=== PATIENT | female | born 1950 | race African-American/Black ===

== ENCOUNTER 2017-02-16 08:43 | Inpatient (IN) | payer OTHER, MEDICARE ==
[2017-02-16] MEDS ORDERED: ONDANSETRON 4 MG/2 ML VIAL IVPUSH ONE (09:33)
[2017-02-16] MEDS ORDERED: SODIUM CHLORIDE 1,000 ML IV STA (09:33)
[2017-02-16] MEDS ORDERED: morphine CARPU-JECT 4 MG/1 ML DISP.SYRIN IVPUSH ONE ×2 (09:33→13:08)
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
[2017-02-16] MEDS ORDERED: morphine CARPU-JECT 4 MG/1 ML DISP.SYRIN ONE ×2 (09:35→13:13)
[2017-02-16] MEDS ORDERED: ONDANSETRON 4 MG/2 ML VIAL ONE (09:35)
[2017-02-16 09:53] LABS: MCH 28.5 pg (25.7-33.7); MCHC 31.9 g/dl (32.0-36.0); MEAN CELL VOLUME 89.3 fl (80-96); MEAN PLT VOLUME 8.9 fl (7.5-11.1); PLATELET COUNT 140 K/MM3 (134-434); RDW 14.2 % (11.6-15.6); WHITE BLOOD COUNT 3.9 K/mm3 (4.0-10.0)
[2017-02-16 10:09] LABS: INR 1.17 (0.82-1.09); PROTHROMBIN TIME (PATIENT) 12.9 SEC (9.98-11.88)
[2017-02-16 10:19] LABS: ALBUMIN 3.1 g/dl (3.4-5.0); ALK PHOS 49 U/L (45-117); ANION GAP 10 (8-16); BILIRUBIN,TOTAL 0.7 mg/dL (0.2-1.0); CALCIUM 8.2 mg/dL (8.5-10.1); CO2 23 mmol/L (21-32); CREATININE 0.9 mg/dL (0.55-1.02); GLUCOSE,RANDOM 97 mg/dL (74-106); SGOT/AST 18 U/L (15-37); SGPT/ALT 16 U/L (12-78); TOT PROT 6.4 g/dl (6.4-8.2)
[2017-02-16 10:29] LABS: PLATELET COMMENT2 NO CLOTTING DETECTED; PLATELET ESTIMATE ADEQUATE (NORMAL)
[2017-02-16 11:21] LABS: URINE APPEARANCE CLEAR; URINE BILIRUBIN NEGATIVE (NEGATIVE); URINE BLOOD NEGATIVE (NEGATIVE); URINE COLOR LTYELLOW; URINE GLUCOSE (UA) NEGATIVE (NEGATIVE); URINE KETONE 1+ (NEGATIVE); URINE LEUK ESTERASE NEGATIVE (NEGATIVE); URINE NITRITE NEGATIVE (NEGATIVE); URINE PROTEIN NEGATIVE (NEGATIVE); URINE UROBILINOGEN NEGATIVE E.U./dl (0.2-1.0)
[2017-02-16] MEDS ORDERED: KETOROLAC TROMETHAMINE 30 MG/1 ML VIAL IVPUSH ONE (14:46)
--- NOTE | 2017-02-16 15:05 | HP ---
CHIEF COMPLAINT: pain everywhere PCP: Jaelyn HISTORY OF PRESENT ILLNESS: 66 yo F with h/o hypothyroidism, GERD, JULIANN/BSO, recent UTI who presents with pain everywhere. Patient states that 3 days ago she developed fatigue and generalized weakness while out shopping. She went home where she had an episode of emesis and symptoms later progressed to pain everywere in her body with the feeling like a tourniquet is on all her arms and legs. She attempted to walk, but standing was so painful that she was unable. She thought that it might go away, but it has not. On direct questioning the pain seems more like it is in her joints. She notes some redness on her legs. She had chills, but denies fevers. She has had no cough, SOB, URI symptoms. BMs are normal and there is no abdominal pain. Symptoms are deistressing and patient is extremely anxious. At baseline she is usually active with minimal limitations ER course was notable for: (1) CTA which showed left lung lesion suspicious - patient states that she has scarring from a prior infection Recent Travel: PAST MEDICAL HISTORY: HLD hypothyroid GERD COPD PAST SURGICAL HISTORY: Cervical discectomy JULIANN/BSO Social History: Smoking: never Alcohol: no Drugs: no Family History: M - DM Allergies latex [Latex] Allergy (Verified 02/16/17 09:10) Difficulty Breathing meperidine HCl [From Demerol] Allergy (Verified 02/16/17 09:10) HALLUCINATION povidone-iodine [From Betadine] Allergy (Verified 02/16/17 09:10) Rash [facility] Adverse Reaction (Uncoded 02/16/17 09:10) "CAN'T BREATHE" HOME MEDICATIONS: Home Medications Medication Instructions Recorded Levothyroxine [Synthroid -] 75 mcg PO DAILY 02/16/17 REVIEW OF SYSTEMS CONSTITUTIONAL: chills Absent: fever, diaphoresis, malaise, loss of appetite, weight change HEENT: Absent: rhinorrhea, nasal congestion, throat pain, throat swelling, difficulty swallowing, mouth swelling, ear pain, eye pain, visual changes CARDIOVASCULAR: Absent: chest pain, syncope, palpitations, irregular heart rate, lightheadedness , peripheral edema RESPIRATORY: Absent: cough, shortness of breath, dyspnea with exertion, orthopnea, wheezing, stridor, hemoptysis GASTROINTESTINAL: Absent: abdominal pain, abdominal distension, nausea, vomiting, diarrhea, constipation, melena, hematochezia GENITOURINARY: Absent: dysuria, frequency, urgency, hesitancy, hematuria, flank pain, genital pain MUSCULOSKELETAL: Absent: myalgia, back pain SKIN: Absent: rash, itching, pallor HEMATOLOGIC/IMMUNOLOGIC: Absent: easy bleeding, easy bruising, lymphadenopathy, frequent infections ENDOCRINE: Absent: unexplained weight gain, unexplained weight loss, heat intolerance, cold intolerance NEUROLOGIC: Absent: headache, focal weakness or paresthesias, dizziness, unsteady gait, seizure, mental status changes, bladder or bowel incontinence PSYCHIATRIC: Absent: anxiety, depression, suicidal or homicidal ideation, hallucinations. PHYSICAL EXAMINATION GENERAL: Awake, alert, and fully oriented, in no acute distress. HEAD: Normal with no signs of trauma. EYES: Pupils equal, round and reactive to light, extraocular movements intact, sclera anicteric, conjunctiva clear. No lid lag. EARS, NOSE, THROAT: Ears normal, nares patent, oropharynx clear without exudates. Moist mucous membranes. NECK: Normal range of motion, supple without lymphadenopathy, JVD, or masses. LUNGS: Breath sounds equal, clear to auscultation bilaterally. No wheezes, and no crackles. No accessory muscle use. HEART: Regular rate and rhythm, normal S1 and S2 without murmur, rub or gallop. ABDOMEN: Soft, nontender, not distended, normoactive bowel sounds, no guarding, no rebound, no masses. No hepatomegaly or splenomegaly. MUSCULOSKELETAL: Normal range of motion at all joints. (+) swelling of ankles bilaterally, (+) ttp of ankles, (+) swelling of anterior helm, (+) TTP of joints in hands UPPER EXTREMITIES: 2+ pulses, warm, well-perfused. No cyanosis. No clubbing. No peripheral edema. LOWER EXTREMITIES: 2+ pulses, warm, well-perfused. No calf tenderness. No peripheral edema. NEUROLOGICAL: Cranial nerves II-XII intact. Normal speech. Normal gait. PSYCHIATRIC: Cooperative. Good eye contact. Appropriate mood and affect. SKIN: faint erythema on anterior legs, Warm, dry, normal turgor, no rashes or lesions noted, normal capillary refill. Laboratory Results - last 24 hr 02/16/17 13:20 ESR 20 Laboratory Results - last 24 hr 02/16/17 02/16/17 02/16/17 09:30 09:30 09:30 WBC 3.9 L RBC 4.56 Hgb 13.0 Hct 40.7 MCV 89.3 MCHC 31.9 L RDW 14.2 Plt Count 140 MPV 8.9 Neutrophils % 74.0 D Lymphocytes % 15.0 D Monocytes % 6.0 Eosinophils % 4.0 D Band Neutrophils 1.0 Platelet Estimate Adequate Platelet Comment No clotting detected RBC Morphology Appears normal ESR INR 1.17 H Sodium 140 Potassium 4.0 Chloride 107 Carbon Dioxide 23 D Anion Gap 10 BUN 9 D Creatinine 0.9 Creat Clearance w eGFR > 60 Random Glucose 97 Lactic Acid Calcium 8.2 L Total Bilirubin 0.7 AST 18 D ALT 16 Alkaline Phosphatase 49 Total Protein 6.4 Albumin 3.1 L Urine Color Urine Appearance Urine pH Ur Specific [place] Urine Protein Urine Glucose (UA) Urine Ketones Urine Blood Urine Nitrite Urine Bilirubin Urine Urobilinogen Ur Leukocyte Esterase Blood Type Antibody Screen 02/16/17 02/16/17 02/16/17 09:30 09:30 11:10 WBC RBC Hgb Hct MCV MCHC RDW Plt Count MPV Neutrophils % Lymphocytes % Monocytes % Eosinophils % Band Neutrophils Platelet Estimate Platelet Comment RBC Morphology ESR INR Sodium Potassium Chloride Carbon Dioxide Anion Gap BUN Creatinine Creat Clearance w eGFR Random Glucose Lactic Acid 1.222 Calcium Total Bilirubin AST ALT Alkaline Phosphatase Total Protein Albumin Urine Color Ltyellow Urine Appearance Clear Urine pH 6.0 Ur Specific [place] 1.014 Urine Protein Negative Urine Glucose (UA) Negative Urine Ketones 1+ H Urine Blood Negative Urine Nitrite Negative Urine Bilirubin Negative Urine Urobilinogen Negative Ur Leukocyte Esterase Negative Blood Type O NEGATIVE Antibody Screen Negative 02/16/17 13:20 WBC RBC Hgb Hct MCV MCHC RDW Plt Count MPV Neutrophils % Lymphocytes % Monocytes % Eosinophils % Band Neutrophils Platelet Estimate Platelet Comment RBC Morphology ESR 20 INR Sodium Potassium Chloride Carbon Dioxide Anion Gap BUN Creatinine Creat Clearance w eGFR Random Glucose Lactic Acid Calcium Total Bilirubin AST ALT Alkaline Phosphatase Total Protein Albumin Urine Color Urine Appearance Urine pH Ur Specific [place] Urine Protein Urine Glucose (UA) Urine Ketones Urine Blood Urine Nitrite Urine Bilirubin Urine Urobilinogen Ur Leukocyte Esterase Blood Type Antibody Screen CTA with lung nodule follow up recommended ASSESSMENT/PLAN: 66 yo F with h/o hypothyroidism, GERD, JULIANN/BSO, recent UTI who presents with pain everywhere and found to have polyarthritis wih synovitis as well. She is in severe pain currently. Acute symptom onset with relatively normal labs, suspect a viral polyarthritis, over crystal, autoimmune and less likely paraneoplastic given lung nodule. Will send CRP, ERWIN, parvo abs, uric acid. Will consult rheum. She will need follow up of lung nodule - was present on CT scan in june. Will treat pain with toradol for now. Polyarthritis: - CRP, ERWIN, Parvo abs - rheum c/s - uric acid - f/u CK -toradol hypothyroidism: - check TSH Lung nodule - PMD f/u Visit type - Emergency Visit Emergency Visit: Yes ED Registration Date: 02/16/17 Care time: The patient presented to the Emergency Department on the above date and was hospitalized for further evaluation of their emergent condition. - New Patient This patient is new to me today: Yes Date on this admission: 03/02/17 - Critical Care Critical Care patient: No
[2017-02-16 17:11] VITALS: BMI 26.0
[2017-02-16] MEDS: morphine CARPU-JECT 2 MG/1 ML DISP.SYRIN IVPB PRN ×2 (18:14→21:53)
[2017-02-16] MEDS: HEPARIN NA (PORCINE) 5,000 UNITS/ML 1ML VIAL SQ SCH (22:00)
[2017-02-17] MEDS: morphine CARPU-JECT 2 MG/1 ML DISP.SYRIN IVPB PRN ×3 (04:10→10:32)
--- NOTE | 2017-02-17 07:18 | CONSULT ---
Consult Consult Specialty:: Rheumtology - History of Present Illness History of Present Illness: 66 year old female with history of hypothyroidism, GERD, episode of seronegative inflammatory arthritis in 1997 that resolved spontaneously and fibromyalgia in 2014, admitted with a 3 day history of diffuse aches and pains. HPI the patient reports that 3 days ago she developed paresthesias in hands and lower limbs followed by diffuse pain to the point that she could not walk. She was admitted yesterday and there has been no improvement in the symptoms. She denies fever, flu like symptoms, skin rash or SOB. - History Source History Provided By: Patient, Medical Record Limitations to Obtaining History: No Limitations - Past Medical History CARDIOLOGY CLINICAL CONSULTANT: Yes: Migraine Cardio/Vascular: Yes: Hyperlipdemia, Other (chest pain syndrome). No: HTN Pulmonary: Yes: Other (area of bronchiectasis) Gastrointestinal: Yes: GERD ...: No Musculoskeletal: Yes: Other (right para-spinal muscle spasm left shoulder impingement syndrome) Endocrine: Yes: Hypothyroidism, Osteopenia (cervical laminectomy JULIANN) - Alcohol/Substance Use Hx Alcohol Use: No History of Substance Use: reports: None - Smoking History Smoking history: Never smoked Have you smoked in the past 12 months: No - Social History ADL: Support Services History of Recent Travel: No Home Medications - Allergies Allergies/Adverse Reactions: Allergies Allergy/AdvReac Type Severity Reaction Status Date / Time latex [Latex] Allergy Difficulty Verified 02/16/17 09:10 Breathing meperidine HCl [From Demerol] Allergy HALLUCINATI Verified 02/16/17 09:10 ON povidone-iodine Allergy Rash Verified 02/16/17 09:10 [From Betadine] [facility] AdvReac "CAN'T Uncoded 02/16/17 09:10 BREATHE" - Home Medications Home Medications: Ambulatory Orders Levothyroxine [Synthroid -] 75 mcg PO DAILY 02/16/17 Family Disease History - Family Disease History Family Disease History: Heart Disease: Mother ( from [place] at age 53) Review of Systems - Review of Systems Constitutional: reports: Malaise Eyes: reports: No Symptoms HENT: reports: No Symptoms Neck: reports: No Symptoms Cardiovascular: reports: No Symptoms Respiratory: reports: No Symptoms Gastrointestinal: reports: No Symptoms Genitourinary: reports: No Symptoms Musculoskeletal: reports: Other (See HPI) Integumentary: reports: No Symptoms Physical Exam Vital Signs: Vital Signs Temperature 98.4 F 02/17/17 05:41 Pulse Rate 70 02/17/17 05:41 Respiratory Rate 18 02/17/17 05:41 Blood Pressure 117/56 02/17/17 05:41 O2 Sat by Pulse Oximetry (%) 97 02/16/17 21:00 Constitutional: Yes: Moderate Distress Eyes: Yes: WNL HENT: Yes: WNL Neck: Yes: WNL Cardiovascular: Yes: WNL Respiratory: Yes: WNL Gastrointestinal: Yes: WNL Musculoskeletal: Yes: Other (Mild tenderness in the right hip. No other joit tenderness or effusion. Diffuse tenderness in muscles, mainly in forearms and calves. No significant tenderness in fibrositic tender points.) Labs: Laboratory Tests 02/16/17 02/16/17 02/16/17 09:30 09:30 09:30 WBC 3.9 L RBC 4.56 Hgb 13.0 Hct 40.7 MCV 89.3 MCHC 31.9 L RDW 14.2 Plt Count 140 MPV 8.9 Neutrophils % 74.0 D Lymphocytes % 15.0 D Monocytes % 6.0 Eosinophils % 4.0 D Band Neutrophils 1.0 Platelet Estimate Adequate Platelet Comment No clumping noted RBC Morphology Appears normal ESR Sodium 140 Potassium 4.0 Chloride 107 Carbon Dioxide 23 D Anion Gap 10 BUN 9 D Creatinine 0.9 Creat Clearance w eGFR > 60 Random Glucose 97 Lactic Acid 1.222 Calcium 8.2 L Total Bilirubin 0.7 AST 18 D ALT 16 Alkaline Phosphatase 49 Total Protein 6.4 Albumin 3.1 L Urine Color Urine Appearance Urine pH Ur Specific [place] Urine Protein Urine Glucose (UA) Urine Ketones Urine Blood Urine Nitrite Urine Bilirubin Urine Urobilinogen Ur Leukocyte Esterase 02/16/17 02/16/17 11:10 13:20 WBC RBC Hgb Hct MCV MCHC RDW Plt Count MPV Neutrophils % Lymphocytes % Monocytes % Eosinophils % Band Neutrophils Platelet Estimate Platelet Comment RBC Morphology ESR 20 Sodium Potassium Chloride Carbon Dioxide Anion Gap BUN Creatinine Creat Clearance w eGFR Random Glucose Lactic Acid Calcium Total Bilirubin AST ALT Alkaline Phosphatase Total Protein Albumin Urine Color Ltyellow Urine Appearance Clear Urine pH 6.0 Ur Specific [place] 1.014 Urine Protein Negative Urine Glucose (UA) Negative Urine Ketones 1+ H Urine Blood Negative Urine Nitrite Negative Urine Bilirubin Negative Urine Urobilinogen Negative Ur Leukocyte Esterase Negative Problem List - Problems (1) Myalgia Assessment/Plan: Diffuse myalgia, mainly in distal groups. The patient does not have arthritis. Rule out rhabdomyolysis, rule out myositis. Plan: CPK and aldolase. Code(s): M79.1 - MYALGIA
--- NOTE | 2017-02-17 08:38 | EKG ---
Test Reason : Blood Pressure : / mmHG Vent. Rate : 074 BPM Atrial Rate : 074 BPM P-R Int : 166 ms QRS Dur : 134 ms QT Int : 436 ms P-R-T Axes : 064 -32 072 degrees QTc Int : 483 ms NORMAL SINUS RHYTHM LEFT AXIS DEVIATION RIGHT BUNDLE BRANCH BLOCK VOLTAGE CRITERIA FOR LEFT VENTRICULAR HYPERTROPHY CANNOT RULE OUT SEPTAL INFARCT (CITED ON OR BEFORE 16-FEB-2017) LATERAL INFARCT (CITED ON OR BEFORE 16-FEB-2017) ABNORMAL ECG WHEN COMPARED WITH ECG OF 04-JUN-2016 10:18, COMPARED TO EKG NO SIGNIFICANT CHANGE IS FOUND Confirmed by ANTOLIN ZARATE MD ([id number]) on 02/17/2017 8:38:02 AM Referred By: Confirmed By:ANTOLIN ZARATE MD
--- NOTE | 2017-02-17 09:32 | PN ---
Teaching Attending Note Name of Resident: Lai Dee ATTENDING PHYSICIAN STATEMENT I saw and evaluated the patient. I reviewed the resident's note and discussed the case with the resident. I agree with the resident's findings and plan as documented. Patient is c/o having diffuse LE pain, stated that started 4 days ago after chills, and cold symptoms. Vital Signs Temperature 98.4 F 02/17/17 05:41 Pulse Rate 70 02/17/17 05:41 Respiratory Rate 18 02/17/17 09:00 Blood Pressure 117/56 02/17/17 05:41 O2 Sat by Pulse Oximetry (%) 97 02/17/17 09:00 CBCD WBC 3.9 K/mm3 (4.0-10.0) L 02/16/17 09:30 RBC 4.56 M/mm3 (3.60-5.2) 02/16/17 09:30 Hgb 13.0 GM/dL (10.7-15.3) 02/16/17 09:30 Hct 40.7 % (32.4-45.2) 02/16/17 09:30 MCV 89.3 fl (80-96) 02/16/17 09:30 MCHC 31.9 g/dl (32.0-36.0) L 02/16/17 09:30 RDW 14.2 % (11.6-15.6) 02/16/17 09:30 Plt Count 140 K/MM3 (134-434) 02/16/17 09:30 MPV 8.9 fl (7.5-11.1) 02/16/17 09:30 CMP Sodium 140 mmol/L (136-145) 02/16/17 09:30 Potassium 4.0 mmol/L (3.5-5.1) 02/16/17 09:30 Chloride 107 mmol/L (98-107) 02/16/17 09:30 Carbon Dioxide 23 mmol/L (21-32) D 02/16/17 09:30 Anion Gap 10 (8-16) 02/16/17 09:30 BUN 9 mg/dL (7-18) D 02/16/17 09:30 Creatinine 0.9 mg/dL (0.55-1.02) 02/16/17 09:30 Creat Clearance w eGFR > 60 (>60) 02/16/17 09:30 Random Glucose 97 mg/dL (74-106) 02/16/17 09:30 Calcium 8.2 mg/dL (8.5-10.1) L 02/16/17 09:30 Total Bilirubin 0.7 mg/dL (0.2-1.0) 02/16/17 09:30 AST 18 U/L (15-37) D 02/16/17 09:30 ALT 16 U/L (12-78) 02/16/17 09:30 Alkaline Phosphatase 49 U/L (45-117) 02/16/17 09:30 Total Protein 6.4 g/dl (6.4-8.2) 02/16/17 09:30 Albumin 3.1 g/dl (3.4-5.0) L 02/16/17 09:30 CARDIAC ENZYMES Creatine Kinase 111 IU/L (26-192) 02/17/17 08:26 Current Medications Generic Name Dose Route Start Last Admin Trade Name Freq PRN Reason Stop Dose Admin Heparin Sodium (Porcine) 5,000 unit 02/16/17 22:00 02/16/17 22:00 Heparin - SQ Not Given BID [facility] Levothyroxine Sodium 75 mcg 02/17/17 10:00 Synthroid - PO ACBK ELIZABETH Morphine Sulfate 2 mg 02/16/17 17:54 02/17/17 07:10 Morphine Injection - IVPB 2 mg Q3H PRN Administration PAIN Home Medications Medication Instructions Recorded Levothyroxine [Synthroid -] 75 mcg PO DAILY 02/16/17 Laboratory Tests 02/16/17 02/16/17 02/16/17 09:30 09:30 09:30 INR 1.17 H Lactic Acid 1.222 Creatine Kinase Albumin 3.1 L Aldolase ERWIN Screen Parvovirus B19 IgG Ab Parvovirus B19 IgM Ab 02/16/17 02/16/17 02/17/17 17:30 17:30 07:50 INR Lactic Acid Creatine Kinase Albumin Aldolase Pending ERWIN Screen Pending Parvovirus B19 IgG Ab Pending Parvovirus B19 IgM Ab Pending 02/17/17 08:26 INR Lactic Acid Creatine Kinase 111 Albumin Aldolase ERWIN Screen Parvovirus B19 IgG Ab Parvovirus B19 IgM Ab Microbiology 02/16/17 09:34 Blood - Peripheral Venous Blood Culture - Preliminary NO GROWTH OBTAINED AFTER 24 HOURS, INCUBATION TO CONTINUE FOR 4 DAYS. 04/16/17 09:34 Blood - Peripheral Venous Blood Culture - Preliminary NO GROWTH OBTAINED AFTER 24 HOURS, INCUBATION TO CONTINUE FOR 4 DAYS. ASSESSMENT AND PLAN: 66 yo F with h/o hypothyroidism, GERD, JULIANN/BSO, recent UTI who presented with LE pain bilaterally. # Diffuse LE pain ; diffuse Myalgia , mainly in distal groups. Dr. sorto on the case as per the patient does not have arthritis. Rule out rhabdomyolysis, rule out myositis. CPK and aldolase, CRP, ERWIN, Parvo abs, uric acid. Duplex of lower extremities patient refused since her lower extremities are very sensitive to touch. # Hx of hypothyroidism: check TSH, FT4 # Lung nodule: PMD f/u DVT Px: Heparin
[2017-02-17] MEDS: LEVOTHYROXINE NA 75 MCG TABLET (FP) PO SCH (10:32)
[2017-02-17] MEDS: HEPARIN NA (PORCINE) 5,000 UNITS/ML 1ML VIAL SQ SCH ×2 (10:32→21:30)
[2017-02-17] MEDS: oxyCODONE HCL 5 MG TABLET PO PRN ×3 (12:58→21:30)
[2017-02-17 14:56] LABS: THYROID STIMULATING HORMONE 2.81 uIU/ml (0.358-3.74)
--- NOTE | 2017-02-17 14:59 | PN ---
Progress Note (short form) - Note Progress Note: PULMONARY CONSULTATION DICTATED IMP DEONNA NODULE MYOSITIS VOCAL CORD DYSFUNCTION GERD HYPOTHYROIDISM H/O SERONEGATIVE POLYARTHRITIS PLAN ANALGESICS SEROLOGY PER RHEUMATOLOGY PET SCAN OUTPATIENT DR DE GUZMAN Problem List - Problems (1) Back pain Code(s): M54.9 - DORSALGIA, UNSPECIFIED (2) Bilateral arm pain Code(s): M79.601 - PAIN IN RIGHT ARM M79.602 - PAIN IN LEFT ARM (3) Myalgia Code(s): M79.1 - MYALGIA (4) Hypothyroidism Code(s): E03.9 - HYPOTHYROIDISM, UNSPECIFIED (5) Myositis Code(s): M60.9 - MYOSITIS, UNSPECIFIED (6) Vocal cord dysfunction Code(s): J38.3 - OTHER DISEASES OF VOCAL CORDS
--- NOTE | 2017-02-17 16:46 | PN ---
Physical Exam: SUBJECTIVE: Patient seen and examined at bedside "I feel horrible" complaining total body pain but legs the most OBJECTIVE: Vital Signs Period Temp Pulse Resp BP Sys/Johnson Pulse Ox Last 24 Hr 98 F-98.5 F 61-78 18-20 117-121/56-66 97-97 GENERAL: Awake, alert, and fully oriented, in no acute distress. HEAD: Normal with no signs of trauma. EYES: Pupils equal, round and reactive to light, extraocular movements intact, sclera anicteric, conjunctiva clear EARS, NOSE, THROAT: Moist mucous membranes. NECK: Normal range of motion, supple without JVD LUNGS: Breath sounds equal, clear to auscultation bilaterally. No wheezes, and no crackles. No accessory muscle use. HEART: Regular rate and rhythm, normal S1 and S2 without murmur, rub or gallop. ABDOMEN: Soft, nontender, not distended, normoactive bowel sounds, no guarding, no rebound, no masses.. MUSCULOSKELETAL: Normal range of motion at all joints. swelling of ankles bilaterally, tender at anles and shins. slightly erythematous lower extremities anteriorly UPPER EXTREMITIES: 2+ pulses, warm, well-perfused. No cyanosis. No clubbing. No peripheral edema. LOWER EXTREMITIES: 2+ DP pulses, warm, well-perfused. NEUROLOGICAL: Cranial nerves II-XII intact. Normal speech. Normal gait. PSYCH: uncooperative Laboratory Results - last 24 hr 02/17/17 02/17/17 02/17/17 08:26 12:40 12:40 Creatine Kinase 111 Vitamin B12 351 Serum Folate 24 H TSH 2.81 D Free T4 1.15 Active Medications Generic Name Dose Route Start Last Admin Trade Name Freq PRN Reason Stop Dose Admin Heparin Sodium (Porcine) 5,000 unit 02/16/17 22:00 02/17/17 10:32 Heparin - SQ 5,000 unit BID ELIZABETH Administration Levothyroxine Sodium 75 mcg 02/17/17 10:00 02/17/17 10:32 Synthroid - PO 75 mcg ACBK ELIZABETH Administration Oxycodone HCl 5 mg 02/17/17 12:02 02/17/17 12:58 Roxicodone - PO 5 mg Q4H PRN Administration PAIN ASSESSMENT/PLAN: 66 year old female with history of hypothyroidism, GERD, per rheumatology note 1 episode of seronegative inflammatory arthritis in 1997 that resolved spontaneously and fibromyalgia in 2014, presents to the ED with a 3 day history of total body aches and pains. 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 - New Patient This patient is new to me today: Yes Date on this admission: 02/17/17 - Critical Care Critical Care patient: No - Discharge Referral Referred to [facility] Med P.C.: No
--- NOTE | 2017-02-17 17:28 | CONS ---
DATE OF CONSULTATION: DATE OF DICTATION: 02/17/2017 PULMONARY CONSULTATION REFERRING PHYSICIAN: Maxx Nash M.D. HISTORY OF PRESENT ILLNESS: The patient is a 66-year-old black female with a past medical history of vocal cord dysfunction, hyperlipidemia, hypothyroidism, GERD, status post JULIANN/BSO, nonsmoker, seronegative inflammatory arthritis in 1997 resolved spontaneously, history of fibromyalgia diagnosed in 2014, admitted to [facility] on February 16 with complaint of 3-day history of diffuse aches and pains. The patient denied any fever, did say she had chills. States that she developed paresthesias in the hands and lower limbs followed by diffuse pain, and she is unable to walk; this occurred 3 days ago. She was admitted with the above. Patient denied any recent travel, denied any recent insect bites, denied any recent URI symptoms. Denies any skin rashes or shortness of breath. Denies any chest pain or palpitations. PAST MEDICAL HISTORY: Again includes hyperlipidemia, history of seronegative inflammatory arthritis, fibromyalgia, GERD,bronchiectasis, left upper lobe nodule. 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 CURRENT MEDICATIONS: Include Synthroid, Roxicodone, and heparin. REVIEW OF SYSTEMS: No orthopnea, no PND. Positive generalized pains. Positive weakness. No chills. No nausea. No vomiting. No chest pain, palpitation. No shortness of breath. No cough. No hemoptysis. PHYSICAL EXAMINATION: General: The patient is a well-developed, well-nourished female, awake, alert, in mild discomfort secondary to pain. Vital signs: She is currently afebrile. Heart rate 67, blood pressure 120/66, respiratory rate 20, O2 saturation 97% on room air. HEENT: Head is normocephalic, atraumatic. Neck: Supple. Heart: Regular. S1, S2. Chest: Clear. Abdomen: Soft. Bowel sounds positive. Extremities: No cyanosis, edema. Tenderness in right hip. No joint tenderness. Diffuse tenderness in muscles in forearms and calves. LABORATORY: WBC 3.9, hemoglobin 13, hematocrit 40.7, platelet count of 140, 000. INR is 1.17, BUN 9, creatinine 0.9. Serology pending. UA is negative. 1+ ketones, otherwise negative. Chest CT reveals no evidence of any pulmonary emboli. There is a left upper lobe nodule which appears mildly increased in size from previous exam. IMPRESSION: 1. Diffuse pain, likely myositis. 2. Left upper lobe nodule r/o malignancy. 3. History of gastroesophageal reflux disease. 4. History of vocal cord dysfunction. PLAN: Analgesics. Serology pending. Further workup as per rheumatology. Also PET scan as outpatient. MARIANNA DE GUZMAN M.D. [id number] MTDD
[2017-02-18] MEDS: LEVOTHYROXINE NA 75 MCG TABLET (FP) PO SCH (06:00)
[2017-02-18] MEDS: oxyCODONE HCL 5 MG TABLET PO PRN ×3 (06:00→14:29)
[2017-02-18] MEDS: HEPARIN NA (PORCINE) 5,000 UNITS/ML 1ML VIAL SQ SCH ×2 (10:28→21:39)
--- NOTE | 2017-02-18 11:00 | PN ---
Progress Note (short form) - Note Progress Note: Breathing feels ok. No CP or SOB. Significant pain in both LE that has worsened since yesterday. Still with body aches. Intake & Output 02/15/17 02/16/17 02/17/17 02/18/17 23:59 23:59 23:59 23:59 Intake Total 300 545 Balance 300 545 Weight 142 lb 8 oz Last Vital Signs Temp Pulse Resp BP Pulse Ox 98.1 F 80 18 115/71 97 02/18/17 10:05 02/18/17 10:05 02/18/17 10:05 02/18/17 10:05 02/17/17 09:00 Active Medications Heparin Sodium (Porcine) (Heparin -) 5,000 unit SQ BID [facility] Last Admin: 02/18/17 10:28 Dose: Not Given Levothyroxine Sodium (Synthroid -) 75 mcg PO ACBK [facility] Last Admin: 02/18/17 06:00 Dose: 75 mcg Oxycodone HCl (Roxicodone -) 5 mg PO Q4H PRN PRN Reason: PAIN Last Admin: 02/18/17 10:26 Dose: 5 mg GENERAL: Uncomfortable due to leg pain HEAD: Normal with no signs of trauma. EYES:sclera anicteric, conjunctiva clear EARS, NOSE, THROAT: Moist mucous membranes. NECK: Normal range of motion, supple without JVD LUNGS: Breath sounds equal, clear to auscultation bilaterally. No wheezes, and no crackles. No accessory muscle use. HEART: Regular rate and rhythm, normal S1 and S2 without murmur, rub or gallop. ABDOMEN: Soft, nontender, not distended, normoactive bowel sounds, no guarding, no rebound, no masses.. MUSCULOSKELETAL: Normal range of motion at all joints. swelling of ankles bilaterally, tender to touch UPPER EXTREMITIES: 2+ pulses, warm, well-perfused. No cyanosis. No clubbing. No peripheral edema. LOWER EXTREMITIES: 2+ DP pulses, warm, well-perfused. NEUROLOGICAL: Non-focal Laboratory Results - last 24 hr 02/17/17 02/17/17 12:40 12:40 Vitamin B12 351 Serum Folate 24 H TSH 2.81 D Free T4 1.15 Problem List - Problems (1) Back pain Code(s): M54.9 - DORSALGIA, UNSPECIFIED (2) Bilateral arm pain Code(s): M79.601 - PAIN IN RIGHT ARM M79.602 - PAIN IN LEFT ARM (3) Myalgia Code(s): M79.1 - MYALGIA (4) Hypothyroidism Code(s): E03.9 - HYPOTHYROIDISM, UNSPECIFIED (5) Myositis Code(s): M60.9 - MYOSITIS, UNSPECIFIED (6) Vocal cord dysfunction Code(s): J38.3 - OTHER DISEASES OF VOCAL CORDS (7) Increasing DEONNA Pulmonary nodule PLAN: Pain control per Primary team O2 as needed Follow Aldolase Synthroid 75mcg po daily Advised patient to follow with Dr Heath for PET scan to further assess enlarging DEONNA nodule VTE prophylaxis Dr Hoyos
--- NOTE | 2017-02-18 13:07 | PN ---
Teaching Attending Note Name of Resident: Lai Dee ATTENDING PHYSICIAN STATEMENT I saw and evaluated the patient. I reviewed the resident's note and discussed the case with the resident. I agree with the resident's findings and plan as documented. SUBJECTIVE: Patient reports severe pain in both legs between her knees and ankles after she tried to get out of bed. She describes the pain as pins and needles and it is circumferential. OBJECTIVE: Vital Signs Period Temp Pulse Resp BP Sys/Johnson Pulse Ox Last 24 Hr 98 F-98.9 F 61-89 18-20 106-122/52-73 HEART: S1 S2, RRR LUNGS: Clear ABDOMEN: Soft, non-tender, non-distended, normal BS EXTREMITIES: No edema NEUROLOGICAL: Alert, oriented, strength 5/5, sensation intact. She reports pain with palpation of her lower legs. ASSESSMENT AND PLAN: 66 yo F with h/o hypothyroidism, GERD, JULIANN/BSO, recent UTI who presented with LE pain bilaterally. # Diffuse LE pain ; diffuse Myalgia , mainly in distal groups. Dr. sorto on the case as per the patient does not have arthritis. Rule out rhabdomyolysis, rule out myositis. CPK and aldolase, CRP, ERWIN, Parvo abs, uric acid. Duplex of lower extremities patient refused since her lower extremities are very sensitive to touch. # Hx of hypothyroidism: check TSH, FT4 # Lung nodule: PMD f/u DVT Px: Heparin
--- NOTE | 2017-02-18 13:07 | PN ---
Physical Exam: SUBJECTIVE: Patient seen and examined at bedside states she was feeling good this morning until she tried to stand up and walk to the bathroom then she started having the pain again OBJECTIVE: Vital Signs Period Temp Pulse Resp BP Sys/Johnson Pulse Ox Last 24 Hr 98 F-98.9 F 61-89 18-20 106-122/52-73 GENERAL: Awake, alert, and fully oriented, in no acute distress. HEAD: Normal with no signs of trauma. EYES: Pupils equal, round and reactive to light, extraocular movements intact, sclera anicteric, conjunctiva clear EARS, NOSE, THROAT: Moist mucous membranes. NECK: Normal range of motion, supple without JVD LUNGS: Breath sounds equal, clear to auscultation bilaterally. No wheezes, and no crackles. No accessory muscle use. HEART: Regular rate and rhythm, normal S1 and S2 without murmur, rub or gallop. ABDOMEN: Soft, nontender, not distended, normoactive bowel sounds, no guarding, no rebound, no masses.. MUSCULOSKELETAL: Normal range of motion at all joints. swelling of ankles bilaterally significantly improved, tender at ankles and shins. UPPER EXTREMITIES: 2+ pulses, warm, well-perfused. No cyanosis. No clubbing. No peripheral edema. LOWER EXTREMITIES: 2+ DP pulses, warm, well-perfused. NEUROLOGICAL: Cranial nerves II-XII intact. Normal speech. Normal gait. PSYCH: uncooperative Laboratory Results - last 24 hr 02/17/17 02/17/17 12:40 12:40 Vitamin B12 351 Serum Folate 24 H TSH 2.81 D Free T4 1.15 Active Medications Generic Name Dose Route Start Last Admin Trade Name Freq PRN Reason Stop Dose Admin Heparin Sodium (Porcine) 5,000 unit 02/16/17 22:00 02/18/17 10:28 Heparin - SQ Not Given BID ELIZABETH Levothyroxine Sodium 75 mcg 02/17/17 10:00 02/18/17 06:00 Synthroid - PO 75 mcg ACBK ELIZABETH Administration Oxycodone HCl 5 mg 02/17/17 12:02 02/18/17 10:26 Roxicodone - PO 5 mg Q4H PRN Administration PAIN ASSESSMENT/PLAN: 66 year old female with history of hypothyroidism, GERD, per rheumatology note 1 episode of seronegative inflammatory arthritis in 1997 that resolved spontaneously and fibromyalgia in 2014, presents to the ED with a 3 day history of total body aches and pains. Myalgia: possible myositis. also possible there are some psychosomatic issues going on. Will follow up labs patient and if negative may benefit from a psychology consult rheumatology consult appreciated CPK WNL Aldolase pending Patient is refusing duplex of lower extremities to r/o DVT ERWIN screen pending parvovirus pending lyme disease pending folate and B12 levels WNL ESR WNL Will consider muscle biopsy Hypothyroidism: continue synthroid 75mcg po daily TSH WNL Free T4 WNL HLD: not on medications outpatient follow up COPD:not currently active outpatient follow up DEONNA nodule increased in size when compared to CT scan from last year-concern for malignancy outpatient follow up-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 - New Patient This patient is new to me today: No - Critical Care Critical Care patient: No - Discharge Referral Referred to [facility] Med P.C.: No
[2017-02-19 00:08] LABS: PARV B19 IGG 1.6 index (0.0-0.8); PARV B19 IGM 0.1 index (0.0-0.8)
[2017-02-19] MEDS: oxyCODONE HCL 5 MG TABLET PO PRN ×2 (03:53→13:49)
[2017-02-19] MEDS: LEVOTHYROXINE NA 75 MCG TABLET (FP) PO SCH (06:09)
[2017-02-19] MEDS: HEPARIN NA (PORCINE) 5,000 UNITS/ML 1ML VIAL SQ SCH (10:48)
--- NOTE | 2017-02-19 11:35 | PN ---
Physical Exam: PULMONARY PROGRESS NOTE SUBJECTIVE: Patient seen and examined at bedside. Pt still has pain throughout her body. She denies recent sick contacts, any recent travel. She did feel as though her pain started in her feet and progressed up to the rest of her body. She denies any paralysis of muscles or weakness of muscles at this time but cannot remember if she had weakness at the time of symptom presentation. She denies any fevers or chills at this time. OBJECTIVE: Vital Signs Temperature 98.2 F 02/19/17 09:07 Pulse Rate 68 02/19/17 09:07 Respiratory Rate 20 02/19/17 09:07 Blood Pressure 114/72 02/19/17 09:07 O2 Sat by Pulse Oximetry (%) 96 02/18/17 20:34 GENERAL: The patient is awake, alert, and fully oriented, in no acute distress. hoarseness in voice (chronic). HEAD: Normal with no signs of trauma. EYES: extraocular movements intact, sclera anicteric, conjunctiva clear. No ptosis. ENT: Ears normal, nares patent, moist mucous membranes. NECK: Trachea midline, full range of motion LUNGS: Breath sounds equal, clear to auscultation bilaterally, no wheezes, no crackles, no accessory muscle use. HEART: Regular rate and rhythm, S1, S2 without murmur, rub or gallop. ABDOMEN: Soft, nontender, nondistended, normoactive bowel sounds, no guarding, no rebound, no hepatosplenomegaly, no masses. EXTREMITIES: 2+ pulses, warm, well-perfused, no edema. B/L LE exquisitely tender to touch. NEUROLOGICAL: Cranial nerves II through XII grossly intact. Normal speech, gait not observed. sensation equal b/l on face, UE, LE. B/L LE 4/5 strength. PSYCH: Normal mood, normal affect. SKIN: Warm, dry, normal turgor, no rashes or lesions noted Laboratory Results - last 24 hr 02/16/17 02/16/17 02/17/17 17:30 17:30 07:50 Aldolase 4.5 ERWIN Screen Negative Lyme Disease IgG/IgM Parvovirus B19 IgG Ab 1.6 H Parvovirus B19 IgM Ab 0.1 02/17/17 12:40 Aldolase ERWIN Screen Lyme Disease IgG/IgM < 0.91 Parvovirus B19 IgG Ab Parvovirus B19 IgM Ab Active Medications Generic Name Dose Route Start Last Admin Trade Name Freq PRN Reason Stop Dose Admin Heparin Sodium (Porcine) 5,000 unit 02/16/17 22:00 02/19/17 10:48 Heparin - SQ Not Given BID [facility]ETH Levothyroxine Sodium 75 mcg 02/17/17 10:00 02/19/17 06:09 Synthroid - PO 75 mcg ACBK ELIZABETH Administration Oxycodone HCl 5 mg 02/17/17 12:02 02/19/17 03:53 Roxicodone - PO 5 mg Q4H PRN Administration PAIN ASSESSMENT/PLAN: 66 y/o F w/PMH of hypothyroidism, GERD, JULIANN/BSO, presents to ER w/ B/L LE pain. -LE pain secondary to parvovirus b19 myalgia -Parvovirus B19 IgG Ab elevated at 1.6, IgM negative, possible past exposure/ infection -supportive therapy -c/w pain control -PT as needed -Lung nodule -increase in size of DEONNA nodule as per radiology read -PET scan as outpatient -O2 as needed to keep oxygen saturation above 90% -hypothyroidism -c/w synthroid 75 mcg PO qd -DVT ppx -heparin sq 5000 units bid Problem List - Problems (1) Leg pain, bilateral Code(s): M79.604 - PAIN IN RIGHT LEG M79.605 - PAIN IN LEFT LEG (2) Myalgia Code(s): M79.1 - MYALGIA (3) Myositis Code(s): M60.9 - MYOSITIS, UNSPECIFIED (4) Hypothyroidism Code(s): E03.9 - HYPOTHYROIDISM, UNSPECIFIED (5) Lung nodule Code(s): R91.1 - SOLITARY PULMONARY NODULE Visit type - Emergency Visit Emergency Visit: Yes ED Registration Date: 02/16/17 Care time: The patient presented to the Emergency Department on the above date and was hospitalized for further evaluation of their emergent condition. - New Patient This patient is new to me today: Yes Date on this admission: 02/19/17 - Critical Care Critical Care patient: No
[2017-02-19 14:56] VITALS: BP 125/71; PULSE 73; TEMP 97.7
--- NOTE | 2017-02-19 15:03 | DS ---
Addendum entered and electronically signed by Lai Dee RES 02/19/17 16:01: patient will be discharged with VNS as she is elderly lives alone although her aunt will stay with her for a few nights and will need physical therapy at home Original Note: Physical Exam: SUBJECTIVE: Patient seen and examined at bedside feels better stable for discharge OBJECTIVE: Vital Signs Period Temp Pulse Resp BP Sys/Johnson Pulse Ox Last 24 Hr 97.7 F-98.3 F 64-73 18-20 114-127/56-72 96 PHYSICAL EXAM GENERAL: Awake, alert, and fully oriented, in no acute distress. HEAD: Normal with no signs of trauma. EYES: Pupils equal, round and reactive to light, extraocular movements intact, sclera anicteric, conjunctiva clear EARS, NOSE, THROAT: Moist mucous membranes. NECK: Normal range of motion, supple without JVD LUNGS: Breath sounds equal, clear to auscultation bilaterally. No wheezes, and no crackles. No accessory muscle use. HEART: Regular rate and rhythm, normal S1 and S2 without murmur, rub or gallop. ABDOMEN: Soft, nontender, not distended, normoactive bowel sounds, no guarding, no rebound, no masses.. MUSCULOSKELETAL: Normal range of motion at all joints. swelling of ankles bilaterally significantly improved, tender at ankles and shins. UPPER EXTREMITIES: 2+ pulses, warm, well-perfused. No cyanosis. No clubbing. No peripheral edema. LOWER EXTREMITIES: 2+ DP pulses, warm, well-perfused. NEUROLOGICAL: Cranial nerves II-XII intact. Normal speech. Normal gait. PSYCH: uncooperative LABS Laboratory Results - last 24 hr 02/16/17 02/16/17 02/17/17 17:30 17:30 07:50 Aldolase 4.5 ERWIN Screen Negative Parvovirus B19 IgG Ab 1.6 H Parvovirus B19 IgM Ab 0.1 HOSPITAL COURSE: Date of Admission:02/16/17 Date of Discharge: 02/19/17 66F with PMH of hypothyroidism presents to the hospital with diffuse body pain. She was seen by rheumatology and they did not believe that she had arthritis. Patient has aldolase CPK vitamin B12 and folate checked and all were within normal limits. She continued to have pain but it improved and she was able to ambulate. Given prescription for vitamin B12 as it was low normal. She will follow up with PMD for lung nodule follow up and will follow up with Rheumatology. Minutes to complete discharge: 45 Discharge Summary Reason For Visit: LEG PAIN BILATERAL ARM PAIN Current Active Problems Back pain (Acute) Bilateral arm pain (Acute) Leg pain, bilateral (Acute) Myalgia (Acute) Myositis (Acute) Hypothyroidism (acquired) (Chronic) Condition: Stable - Instructions Diet, Activity, Other Instructions: please follow up with your primary care doctor continue your home medications i will prescribe vitamin B12 for you to take follow up with the risk control director it was a pleasure taking care of you if your symptoms worsen go to the nearest emergency room you need to follow up with your primary care doctor and get an outpatient CT scan for you lungs to evaluate the nodule Sheldon ravi Referrals: Israel Heath MD [Primary Care Provider] - 1 Week Cm Keen MD [Staff Physician] - 1 Week Disposition: HOME - Home Medications Comprehensive Discharge Medication List: Ambulatory Orders Levothyroxine [Synthroid -] 75 mcg PO DAILY 02/16/17 Cyanocobalamin [Vitamin B12 -] 1,000 mcg PO DAILY #30 tablet 02/19/17 This patient is new to me today: No Emergency Visit: Yes ED Registration Date: 02/16/17 Care time: The patient presented to the Emergency Department on the above date and was hospitalized for further evaluation of their emergent condition. Critical Care patient: No - Discharge Referral Referred to [facility] No
--- NOTE | 2017-02-19 18:24 | PN ---
Teaching Attending Note Name of Resident: Lai Dee ATTENDING PHYSICIAN STATEMENT I saw and evaluated the patient. I reviewed the resident's note and discussed the case with the resident. I agree with the resident's findings and plan as documented. SUBJECTIVE: no fever or chills, no abd pain . has pain in Legs , which has improved OBJECTIVE: NAd , awake alert oriented x 3. comfortable in bed. CV: RRR Lungs: CTAB Ext: no edema , TTP over lower legs , n o erythema or edema over ankles or knees. no erythema over legs no rash or ulcers gait steady . neuro of LE , strength 5/5 prpx and distally sensation to light touch nl in LE . + knee jerk b/l ASSESSMENT AND PLAN: 66 y/o lady with h/o hypothyroidism, GERD, JULIANN/BSO, recent UTI, who presneted with LE pain in both legs w/u included nl TSH, NL aldolase and CPK. NL chemistry . low nl B 12. her sx might be due to myositis or peripheral neuropathy . prescribed B12 supp. can't obtain MMA here f/u with rheum and PCP for possibel muscle bx and/or EMG has DEONNA lnodule which has enlarged, she understands she needs to follow up with Dr. Christy dc home . she walked and was steady fro me .
== END 2017-02-19 16:42 | disposition home health service (06) | DRG 556 ==
LOC: JER 08:43 → JERBED 13:07 → J6S 16:38
PROVIDERS: ADMIT Internal Medicine; ATTEND Internal Medicine
DX: M60.9 Myositis, unspecified (principal); E78.00 Pure hypercholesterolemia, unspecified; K21.9 Gastro-esophageal reflux disease without esophagitis; E03.9 Hypothyroidism, unspecified; J44.9 Chronic obstructive pulmonary disease, unspecified; R91.1 Solitary pulmonary nodule; J38.3 Other diseases of vocal cords; M54.9 Dorsalgia, unspecified
CPT/HCPCS: 36415; 71275-TC; 74174-TC; 80053; 81003; 82085; 82550; 82607; 82746; 83605; 84439; 84443; 85025; 85610; 85651; 86038; 86747; 86850; 86900; 86901; 87040; 93005; 93010; 97116-GP; 97162-GP; 99284-25; J1644

== ENCOUNTER 2018-04-02 10:04 | Inpatient (IN) | payer OTHER, MEDICARE ==
[2018-04-02] MEDS ORDERED: morphine CARPU-JECT 2 MG/1 ML DISP.SYRIN IVPUSH ONE ×2 (10:19→11:37)
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
--- NOTE | 2018-04-02 10:24 | PDOC ---
Attending Attestation - Resident Resident Name: [email or web address] - ED Attending Attestation I have performed the following: I have examined & evaluated the patient, The case was reviewed & discussed with the resident, I agree w/resident's findings & plan, Exceptions are as noted - HPI HPI: 04/02/18 10:23 67 year old F c/ hx cystic bladder disease, hypothyroidism p/w left hip pain since yesterday. Yesterday, pt was in her usual state of health. She went to stand up when she suddenly felt left hip pain. Worsened with movement and palpation. States pain persisted so came into ED today. States pain radiates to her left anterior thigh. Denies numbness, weakness. Pt typically is ambulatory without assistance, but has been having difficulty walking. No skin rashes, fevers, chills. - Physicial Exam PE: 04/02/18 10:40 GENERAL: Awake, alert, and fully oriented, anxious, uncomfortable appearing HEAD: No signs of trauma EYES: EOMI, sclera anicteric, conjunctiva clear ENT: Auricles normal inspection, hearing grossly normal, nares patent NECK: Normal ROM, supple, EXTREMITIES: LLE: 2+ DP pulse. Sensation intact throughout No tenderness along the ankle, tibia/fibula, left knee. TTP left lateral hip and left inguinal crease. No obvious inguinal hernia on my exam. Pt hesitant to flex the hip secondary to pain. No erythema, drainages, crepitus, or rash. Compartments soft. NEUROLOGICAL: Cranial nerves II through XII grossly intact. Normal speech SKIN: Warm, Dry, normal turgor, no rashes or lesions noted. - Medical Decision Making 04/02/18 10:41 Vital Signs Temp Pulse Resp BP Pulse Ox 98.4 F 76 18 125/67 99 04/02/18 10:05 04/02/18 10:05 04/02/18 10:05 04/02/18 10:05 04/02/18 10:05 Patient developing left hip pain. No back pain and no radiation down left posterior leg, less likely to be sciatica. She feels this grinding sensation in her left hip. Could this be arthritis or pathological fracture? Patient will need an xray. Septic joint and necrotizing faascitis was considered, but given presentation and physical exam, my suspicion is less likely. Labs, pain control. If xray unrevealing, will obtain a CT pelvis. If unable to ambulate, will need to admit the patient. 04/02/18 12:51 Course calcification along the left gluteus medius tendon at its attachment to the greater trochanter with surrounding fluid and soft tissue which is increased since May 2014. These findings may be actually some combination of chronic gluteus medius tendon injury, superimposed acute tendon injury, bursitis or tendinitis. CBC, BMP 04/02/18 10:25 04/02/18 10:25 CMP Sodium 139 mmol/L (136-145) 04/02/18 10:25 Potassium 4.5 mmol/L (3.5-5.1) 04/02/18 10:25 Chloride 107 mmol/L (98-107) 04/02/18 10:25 Carbon Dioxide 27 mmol/L (22-28) 04/02/18 10:25 Anion Gap 5 (8-16) L 04/02/18 10:25 BUN 10 mg/dl (7-18) 04/02/18 10:25 Creatinine < 0.8 mg/dl (0.6-1.3) 04/02/18 10:25 Creat Clearance w eGFR > 60 (>60) 04/02/18 10:25 Random Glucose 96 mg/dl (74-106) 04/02/18 10:25 Calcium 8.9 mg/dl (8.4-10.2) 04/02/18 10:25 Total Bilirubin 0.8 mg/dl (0.2-1.0) 04/02/18 10:25 AST 19 U/L (10-42) 04/02/18 10:25 ALT 11 U/L (10-40) 04/02/18 10:25 Alkaline Phosphatase 49 U/L (32-92) 04/02/18 10:25 Total Protein 6.8 g/dl (6.4-8.3) 04/02/18 10:25 Albumin 3.7 g/dl (3.5-5.0) 04/02/18 10:25 Will admit the patient to the hospital and consult orthopedics. Heart Score/ECG Review #1 ECG reviewed & interpreted by me at: 13:25 04/02/18 13:42 NSR 72, left axis deviation, LVH, RBBB, QTC 479 msec
[2018-04-02] MEDS ORDERED: morphine SULFATE 4 MG/ML VIAL ONE ×2 (10:32→13:26)
[2018-04-02 11:01] LABS: ALBUMIN 3.7 g/dl (3.5-5.0); ALK PHOS 49 U/L (32-92); ANION GAP 5 (8-16); BILIRUBIN,TOTAL 0.8 mg/dl (0.2-1.0); BLOOD UREA NITROGEN 10 mg/dl (7-18); CALCIUM 8.9 mg/dl (8.4-10.2); CHLORIDE 107 mmol/L (98-107); CO2 27 mmol/L (22-28); GLUCOSE,RANDOM 96 mg/dl (74-106); POTASSIUM 4.5 mmol/L (3.5-5.1); SGOT/AST 19 U/L (10-42); SGPT/ALT 11 U/L (10-40); SODIUM 139 mmol/L (136-145); TOT PROT 6.8 g/dl (6.4-8.3)
[2018-04-02 11:07] LABS: BASO % 0.8 % (0-2.0); EOS % 0.9 % (0-4.5); HEMATOCRIT 40.7 % (32.4-45.2); HEMOGLOBIN 13.6 GM/dl (10.7-15.3); LYMPH % 40.3 % (8-40); MCH 30.3 pg (25.7-33.7); MCHC 33.5 g/dl (32.0-36.0); MEAN CELL VOLUME 90.4 fl (80-96); MEAN PLT VOLUME 9.7 fl (7.5-11.1); MONO % 9.3 % (3.8-10.2); NEUT % 48.7 % (42.8-82.8); PLATELET COUNT 145 K/MM3 (134-434); RDW 13.1 % (11.6-15.6); WHITE BLOOD COUNT 5.3 K/mm3 (4.0-10.8)
[2018-04-02 11:11] LABS: CREATININE < 0.8 mg/dl (0.6-1.3)
[2018-04-02 11:28] LABS: INR 1.14 (0.82-1.09); PROTHROMBIN TIME (PATIENT) 12.7 SEC (10.2-13.0)
[2018-04-02] MEDS ORDERED: morphine CARPU-JECT 4 MG/1 ML DISP.SYRIN IVPUSH ONE (13:11)
[2018-04-02] MEDS ORDERED: ONDANSETRON 4 MG/2 ML VIAL IVPUSH ONE (13:29)
[2018-04-02] MEDS ORDERED: ONDANSETRON 4 MG/2 ML VIAL ONE (13:30)
[2018-04-02] MEDS ORDERED: KETOROLAC TROMETHAMINE 15 MG/ML VIAL IVPUSH ONE ×2 (14:13→15:14)
[2018-04-02] MEDS ORDERED: KETOROLAC TROMETHAMINE 15 MG/ML VIAL ONE (14:22)
[2018-04-02 16:49] VITALS: BMI 24.0
[2018-04-02] MEDS ORDERED: HEPARIN NA (PORCINE) 5,000 UNITS/ML 1ML VIAL SQ SCH (22:00)
[2018-04-02] MEDS ORDERED: FAMOTIDINE 20 MG TABLET PO SCH (22:00)
--- NOTE | 2018-04-02 22:40 | HP ---
CHIEF COMPLAINT: Left Hip Pain, Unable to Ambulate PCP: Dr. Heath HISTORY OF PRESENT ILLNESS: This is a 67 y/o woman with a PMHx of: Cystic Bladder, Chronic Back Pain, Hypothyroidism. Who presents to the ED with severe left hip pain and unable to ambulate since today. Patient reports while sitting down she turned and felt a snap in her left hip which was "excruciating", leaving her unable to ambulate due to the pain. Patient also reports numbness to her left foot. The patient denies recent fall or trauma. Patient denies fever, chills, cough, SOB, CP, palpitations, AP, N/V/D, dysuria ER course was notable for: (1) CT Pelvis- No evidence of acute fx in pelvis or hips. No pelvic or hip dislocation. Chronic gluteus medius tendon injury/tear, superimposed acute tendon injury/tear, bursitis and or/calcific tendinitis. 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 ?femoroacetabular impingement (2) Left Hip/Pelvis Xray- No acute fx, no dislocation. Mild bilateral hip OA changes (3) Recent Travel: None PAST MEDICAL HISTORY: See HPI PAST SURGICAL HISTORY: Appendectomy Hysterectomy Cervical Disc removed Social History: Smoking: Never Alcohol: None Drugs: None Lives alone, retired and Independent Family History: Mother: Heart Disease, DM Brother: DM Great Aunt: Cancer Uncle: Cancer Allergies latex [Latex] Allergy (Verified 04/02/18 10:05) "Difficulty Breathing" meperidine HCl [From Demerol] Allergy (Verified 04/02/18 10:05) HALLUCINATION povidone-iodine [From Betadine] Allergy (Verified 04/02/18 10:05) "SKIN SLOUGHS OFF" [facility] Adverse Reaction (Uncoded 09/29/17 12:06) "CAN'T BREATHE" HOME MEDICATIONS: Home Medications Medication Instructions Recorded Levothyroxine [Synthroid -] 75 mcg PO DAILY 02/16/17 Pentosan Polysulfate Sodium 300 mg PO DAILY 09/29/17 [Elmiron] Oxycodone HCl/Acetaminophen 1 each PO ASDIR 04/02/18 [Percocet 10-325 mg Tablet] REVIEW OF SYSTEMS CONSTITUTIONAL: Absent: fever, chills, diaphoresis, generalized weakness, malaise, loss of appetite, weight change HEENT: Absent: rhinorrhea, nasal congestion, throat pain, throat swelling, difficulty swallowing, mouth swelling, ear pain, eye pain, visual changes CARDIOVASCULAR: Absent: chest pain, syncope, palpitations, irregular heart rate, lightheadedness , peripheral edema RESPIRATORY: Absent: cough, shortness of breath, dyspnea with exertion, orthopnea, wheezing, stridor, hemoptysis GASTROINTESTINAL: Absent: abdominal pain, abdominal distension, nausea, vomiting, diarrhea, constipation, melena, hematochezia GENITOURINARY: Absent: dysuria, frequency, urgency, hesitancy, hematuria, flank pain, genital pain MUSCULOSKELETAL: myalgia, arthralgia ,back pain Absent: myalgia, arthralgia, joint swelling, back pain, neck pain SKIN: Absent: rash, itching, pallor HEMATOLOGIC/IMMUNOLOGIC: Absent: easy bleeding, easy bruising, lymphadenopathy, frequent infections ENDOCRINE: Absent: unexplained weight gain, unexplained weight loss, heat intolerance, cold intolerance NEUROLOGIC: unsteady gait Absent: headache, focal weakness or paresthesias, dizziness, seizure, mental status changes, bladder or bowel incontinence PSYCHIAT Absent: anxiety, depression, suicidal or homicidal ideation, hallucinations. PHYSICAL EXAMINATION Vital Signs - 24 hr 04/02/18 04/02/18 04/02/18 10:05 12:58 15:00 Temperature 98.4 F Pulse Rate 76 Pulse Rate [ 82 67 Apical] Respiratory 18 18 18 Rate Blood Pressure 125/67 Blood Pressure 133/62 117/58 [Arm] O2 Sat by Pulse 99 99 97 Oximetry (%) 04/02/18 04/02/18 15:40 21:04 Temperature 98.5 F 98.3 F Pulse Rate 73 67 Pulse Rate [ Apical] Respiratory 18 16 Rate Blood Pressure 128/53 131/63 Blood Pressure [Arm] O2 Sat by Pulse 98 97 Oximetry (%) GENERAL: Thin, awake, alert, and fully oriented, in mild distress. HEAD: Normal with no signs of trauma. EYES: Pupils equal, round and reactive to light, extraocular movements intact, sclera anicteric, conjunctiva clear. No lid lag. EARS, NOSE, THROAT: Ears normal, nares patent, oropharynx clear without exudates. Moist mucous membranes. NECK: Normal range of motion, supple without lymphadenopathy, JVD, or masses. LUNGS: Breath sounds equal, clear to auscultation bilaterally. No wheezes, and no crackles. No accessory muscle use. HEART: Regular rate and rhythm, normal S1 and S2 without murmur, rub or gallop. ABDOMEN: Soft, nontender, not distended, normoactive bowel sounds, no guarding, no rebound, no masses. No hepatomegaly or splenomegaly. MUSCULOSKELETAL: Limited range of motion at all joints. L- lateral hip tenderness. No bony deformities. No CVA tenderness. UPPER EXTREMITIES: 2+ pulses, warm, well-perfused. No cyanosis. No clubbing. No peripheral edema. LOWER EXTREMITIES: 2+ pulses, warm, well-perfused. No calf tenderness. No peripheral edema. NEUROLOGICAL: Cranial nerves II-XII intact. Normal speech. Gait not observed. PSYCHIATRIC: Cooperative. Good eye contact. Appropriate mood and affect. SKIN: Warm, dry, normal turgor, no rashes or lesions noted, normal capillary refill. Laboratory Results - last 24 hr 04/02/18 04/02/18 04/02/18 10:25 10:25 10:25 WBC 5.3 RBC 4.50 Hgb 13.6 Hct 40.7 MCV 90.4 MCH 30.3 MCHC 33.5 RDW 13.1 Plt Count 145 MPV 9.7 Neutrophils % 48.7 Lymphocytes % 40.3 H Monocytes % 9.3 Eosinophils % 0.9 Basophils % 0.8 PT with INR 12.7 INR 1.14 Sodium 139 Potassium 4.5 Chloride 107 Carbon Dioxide 27 Anion Gap 5 L BUN 10 Creatinine < 0.8 Creat Clearance w eGFR > 60 Random Glucose 96 Calcium 8.9 Total Bilirubin 0.8 AST 19 ALT 11 Alkaline Phosphatase 49 Total Protein 6.8 Albumin 3.7 Blood Type Antibody Screen 04/02/18 04/02/18 10:25 10:35 WBC RBC Hgb Hct MCV MCH MCHC RDW Plt Count MPV Neutrophils % Lymphocytes % Monocytes % Eosinophils % Basophils % PT with INR INR Sodium Potassium Chloride Carbon Dioxide Anion Gap BUN Creatinine Creat Clearance w eGFR Random Glucose Calcium Total Bilirubin AST ALT Alkaline Phosphatase Total Protein Albumin Blood Type O NEGATIVE Cancelled Antibody Screen Negative ASSESSMENT/PLAN: 67 y/o woman PMHx of: Cystic Bladder, Hypothyroidism. Placed in Observation for Acute Hip Pain secondary to possible Tendon Rupture or chronic Tendinopathy Plan: Place in Observation for Acute Hip Pain vs Acute Tendon Rupture vs Chronic Tendinopathy CT Pelvis- showed no evidence of acute fracture in the pelvis or hips. No pelvic or hip dislocation. ?chronic gluteus medius tendon injury/tear. superimposed acute tendon injury/tear, bursitis and/or calcific tendinitis. Mild OA changes in B/L hips, ?femoroacetabular impingement. Left Hip/Pelvis Xray- showed No acute fx, no dislocation. Mild bilateral hip OA changes Appreciate Ortho consult Physical Therapy- ROM, Gait strengthening, when cleared by Ortho Tylenol, Tramadol prn Continue Levothyroxine CBC, BMP in am Consider STR upon discharge Monitor vitals DVT ppx- SCDs, Heparin SQ Code Status: Full Code Dispo: Observation Problem List - Problem (1) Left hip pain Code(s): M25.552 - PAIN IN LEFT HIP (2) Tendon rupture, nontraumatic Code(s): M66.9 - SPONTANEOUS RUPTURE OF UNSPECIFIED TENDON (3) Back pain Code(s): M54.9 - DORSALGIA, UNSPECIFIED (4) Hypothyroidism Code(s): E03.9 - HYPOTHYROIDISM, UNSPECIFIED Visit type - Emergency Visit Emergency Visit: Yes ED Registration Date: 04/02/18 Care time: The patient presented to the Emergency Department on the above date and was hospitalized for further evaluation of their emergent condition. - New Patient This patient is new to me today: Yes Date on this admission: 04/02/18 - Critical Care Critical Care patient: No Hospitalist Screening - Colonoscopy Questionnaire Colonoscopy Questionnaire: Colonoscopy Questionnaire - Patient: 50 - 75 years old and never had a screening colonoscopy: No History of colon or rectal polyps, or CA: No History of IBD, Crohn's disease or UC: No History of abdominal radiation therapy as a child: No - Relative: 1 with colon or rectal CA, or polyps at age 60 or younger: No Colon or rectal CA diagnosed at age 45 or younger: No Multiple relatives with colon or rectal CA: No - Outcome: Screening Result: Negative Screen
[2018-04-03] MEDS ORDERED: traMADol HCL 50 MG TABLET PO PRN (04:57)
[2018-04-03] MEDS: LEVOTHYROXINE NA 75 MCG TABLET (FP) PO SCH (06:24)
[2018-04-03] MEDS ORDERED: PENTOSAN POLYSULFATE SODIUM PO SCH (10:00)
--- NOTE | 2018-04-03 10:13 | CON.ORTH ---
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 No: HTN Pulmonary: Yes: Other (area of bronchiectasis) Gastrointestinal: Yes: GERD ...: No Musculoskeletal: Yes: Other (right para-spinal muscle spasm left shoulder impingement syndrome) Endocrine: Yes: Hypothyroidism, Osteopenia (cervical laminectomy JULIANN) - Alcohol/Substance Use Hx Alcohol Use: No History of Substance Use: reports: None - Smoking History Smoking history: Never smoked Have you smoked in the past 12 months: No - Social History ADL: Support Services History of Recent Travel: No Home Medications - Allergies Allergies/Adverse Reactions: Allergies Allergy/AdvReac Type Severity Reaction Status Date / Time latex [Latex] Allergy "Difficulty Verified 04/02/18 10:05 Breathing" meperidine HCl [From Demerol] Allergy HALLUCINATI Verified 04/02/18 10:05 ON povidone-iodine Allergy "SKIN Verified 04/02/18 10:05 [From Betadine] SLOUGHS OFF" [facility] AdvReac "CAN'T Uncoded 09/29/17 12:06 BREATHE" - Home Medications Home Medications: Ambulatory Orders Levothyroxine [Synthroid -] 75 mcg PO DAILY 02/16/17 Pentosan Polysulfate Sodium [Elmiron] 300 mg PO DAILY 09/29/17 Oxycodone HCl/Acetaminophen [Percocet 10-325 mg Tablet] 1 each PO ASDIR Family Disease History - Family Disease History Family Disease History: Heart Disease: Mother ( from [place] at age 53) Physical Exam for Ortho Vital Signs: Vital Signs Temperature 98.5 F 04/03/18 06:36 Pulse Rate 73 04/03/18 06:36 Respiratory Rate 18 04/03/18 06:36 Blood Pressure 123/62 04/03/18 06:36 O2 Sat by Pulse Oximetry (%) 98 04/03/18 06:36 Labs: CBC, BMP 04/02/18 10:25 04/02/18 10:25 INR, PTT INR 1.14 (0.82-1.09) 04/02/18 10:25 - Lower Extremity Hip: Yes: Left, Decreased ROM, Pain, Swelling, Other (equal limb lengths, nvi) Imaging - Results X-ray: Report Reviewed, Image Reviewed Cat Scan: Report Reviewed, Image Reviewed Assessment/Plan 67 y/o woman with a PMHx of: Cystic Bladder, Chronic Back Pain, Hypothyroidism. Who presents to the ED with severe left hip pain and unable to ambulate x 1 day. Patient reports while sitting down she turned and felt a snap in her left hip which was "excruciating", leaving her unable to ambulate due to the pain. a/p left hip strain/bursitis, djd- no acute fx Toradol for pain and inflammation Ice to left hip 15 min q2-3 hours PT eval wbat pain control will follow d/w Dr. Thomas
--- NOTE | 2018-04-03 10:19 | EKG ---
Test Reason : Blood Pressure : / mmHG Vent. Rate : 072 BPM Atrial Rate : 072 BPM P-R Int : 188 ms QRS Dur : 128 ms QT Int : 438 ms P-R-T Axes : 061 -37 065 degrees QTc Int : 479 ms NORMAL SINUS RHYTHM LEFT AXIS DEVIATION RIGHT BUNDLE BRANCH BLOCK VOLTAGE CRITERIA FOR LEFT VENTRICULAR HYPERTROPHY CANNOT RULE OUT SEPTAL INFARCT (CITED ON OR BEFORE 16-FEB-2017) POSSIBLE LATERAL INFARCT (CITED ON OR BEFORE 16-FEB-2017) ABNORMAL ECG WHEN COMPARED WITH ECG OF 29-SEP-2017 13:15, QUESTIONABLE CHANGE IN INITIAL FORCES OF SEPTAL LEADS Confirmed by AME PLASCENCIA MD ([id number]) on 04/03/2018 10:18:52 AM Referred By: NEFTALI MILAN Confirmed By:AME PLASCENCIA MD
[2018-04-03] MEDS: KETOROLAC TROMETHAMINE 30 MG/1 ML VIAL IVPUSH SCH ×3 (10:38→21:45)
[2018-04-03] MEDS: ACETAMINOPHEN 1000 MG/100 ML VIAL (NON FORMULARY) IVPB PRN (10:39)
[2018-04-03] MEDS: oxyCODONE HCL 5 MG TABLET PO PRN (11:14)
--- NOTE | 2018-04-03 13:18 | PN ---
Physical Exam: SUBJECTIVE: Patient seen and examined. Pain is tolerable when stationary, increased with movement. no fever, chills OBJECTIVE: Vital Signs Period Temp Pulse Resp BP Sys/Johnson Pulse Ox Last 24 Hr 98.3 F-98.5 F 67-73 16-18 117-131/53-63 97-98 PE Neuro: alert, awake, cn 2-12intact Pulm: CTAB CV: s1 s2 rrr no mrg Abd: s nt nd +bs Ext: left hip tenderness w movement Active Medications Generic Name Dose Route Start Last Admin Trade Name Freq PRN Reason Stop Dose Admin Acetaminophen 1,000 mg 04/03/18 09:13 04/03/18 10:39 Ofirmev Injection - IVPB 1,000 mg Q6H PRN Administration PAIN LEVEL 1-5 Heparin Sodium (Porcine) 5,000 unit 04/03/18 14:00 Heparin - SQ TID ELIZABETH Ketorolac Tromethamine 30 mg 04/03/18 10:15 04/03/18 10:38 Toradol Injection - IVPUSH 04/04/18 04:16 30 mg Q6H ELIZABETH Administration Levothyroxine Sodium 75 mcg 04/03/18 07:00 04/03/18 06:24 Synthroid - PO 75 mcg 0700 ELIZABETH Administration Morphine Sulfate 1 mg 04/03/18 09:14 Morphine Injection - IVPUSH Q4H PRN PAIN LEVEL 6-10 Non-Formulary Medication 300 mg 04/03/18 10:00 Pentosan Polysulfate Sodium [Elmiron] PO DAILY ELIZABETH Oxycodone HCl 5 mg 04/03/18 09:13 04/03/18 11:14 Roxicodone - PO 5 mg Q4H PRN Administration PAIN LEVEL 4 - 6 Imaging: - CTAP: No evidence of acute fx in pelvis or hips. No pelvic or hip dislocation. Chronic gluteus medius tendon injury/tear, superimposed acute tendon injury/tear, bursitis and or/calcific tendinitis. 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 ?femoroacetabular impingement - Left Hip/Pelvis Xray- No acute fx, no dislocation. Mild bilateral hip OA changes Assessment: 67 year old female with a Pmhx: Cystic Bladder, Chronic Back Pain, Hypothyroidism admitted with severe left hip pain and unable to ambulate. Plan: 1. Left hip pain - No acute fracture, chronic gluteus tear with superimposed left hip strain/ bursitis - Continue Torodol prn pain/inflammation, oxycodone prn pain - ICE to site 15min q2-3 hrs - PT eval - WBAT - Appreciate ortho consult 2. Hypothyroid - Synthroid 75mcg daily 3. DVT - Heparin sq Visit type - Emergency Visit Emergency Visit: Yes ED Registration Date: 04/02/18 Care time: The patient presented to the Emergency Department on the above date and was hospitalized for further evaluation of their emergent condition. - New Patient This patient is new to me today: Yes Date on this admission: 04/03/18 - Critical Care Critical Care patient: No
[2018-04-03] MEDS: HEPARIN NA (PORCINE) 5,000 UNITS/ML 1ML VIAL SQ SCH ×2 (14:00→21:47)
--- NOTE | 2018-04-03 14:44 | CON.PULM ---
Consult Consult Specialty:: PULMONARY Referred by:: BETTY Reason for Consultation:: LEFT GROIN PAIN/ - History of Present Illness Chief Complaint: SEVERE PAIN LEFT GROIN/UNABLE TO BEAR WEIGHT History of Present Illness: 67 year old female with history of hypothyroidism, GERD, Vocal cord dysfunction, mild dementia an episode of seronegative inflammatory arthritis in 1997 that resolved spontaneously and fibromyalgia in 2014, admitted with severe pain left groin when changing from a sitting to a standing position. she is unable to bear weight on left leg.She also has a h/o Migraine Hyperlipdemia, right para- spinal muscle spasm left shoulder impingement syndrome, Hypothyroidism and Osteoporosis. 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 No: HTN Pulmonary: Yes: Other (area of bronchiectasis) Gastrointestinal: Yes: GERD ...: No Musculoskeletal: Yes: Other (right para-spinal muscle spasm left shoulder impingement syndrome) ENT: Yes: Other (Vocal cord dysfunction) Endocrine: Yes: Hypothyroidism, Osteopenia (cervical laminectomy JULIANN) - Past Surgical History Past Surgical History: Yes: Hysterectomy - Alcohol/Substance Use Hx Alcohol Use: No History of Substance Use: reports: None - Smoking History Smoking history: Never smoked Have you smoked in the past 12 months: No - Social History Usual Living Arrangement: Alone ADL: Independent 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 Place of : [facility] History of Recent Travel: No Home Medications - Allergies Allergies/Adverse Reactions: Allergies Allergy/AdvReac Type Severity Reaction Status Date / Time latex [Latex] Allergy "Difficulty Verified 04/02/18 10:05 Breathing" meperidine HCl [From Demerol] Allergy HALLUCINATI Verified 04/02/18 10:05 ON povidone-iodine Allergy "SKIN Verified 04/02/18 10:05 [From Betadine] SLOUGHS OFF" [facility] AdvReac "CAN'T Uncoded 09/29/17 12:06 BREATHE" - Home Medications Home Medications: Ambulatory Orders Levothyroxine [Synthroid -] 75 mcg PO DAILY 02/16/17 Pentosan Polysulfate Sodium [Elmiron] 300 mg PO DAILY 09/29/17 Oxycodone HCl/Acetaminophen [Percocet 10-325 mg Tablet] 1 each PO ASDIR Family Disease History - Family Disease History Family Disease History: Heart Disease: Mother ( from [place] at age 53) Review of Systems - Review of Systems Neurological: reports: Unsteady Gait, Weakness, Other (pain left groin radiating down leg) Physical Exam Vital Sings: Vital Signs Temperature 97.9 F 04/03/18 14:25 Pulse Rate 61 04/03/18 14:25 Respiratory Rate 16 04/03/18 14:25 Blood Pressure 106/60 04/03/18 14:25 O2 Sat by Pulse Oximetry (%) 98 04/03/18 06:36 Constitutional: Yes: Calm Eyes: Yes: EOM Intact HENT: Yes: Normocephalic Neck: Yes: Trachea Midline Cardiovascular: Yes: Regular Rate and Rhythm Respiratory: Yes: CTA Bilaterally Gastrointestinal: Yes: Normal Bowel Sounds Extremities: Yes: Other (left groin pain) Edema: No Neurological: Yes: Paresthesia ...Motor Strength: LLE (11/07) Labs: CBC, BMP 04/02/18 10:25 04/02/18 10:25 Imaging - Results Chest X-ray: Report Reviewed Cat Scan: Report Reviewed Problem List - Problems (1) Left hip pain Code(s): M25.552 - PAIN IN LEFT HIP (2) Tendon rupture, nontraumatic Code(s): M66.9 - SPONTANEOUS RUPTURE OF UNSPECIFIED TENDON (3) Hypothyroidism Code(s): E03.9 - HYPOTHYROIDISM, UNSPECIFIED Assessment/Plan ACUTE LEFT GLUTEUS MEDIUS TENDONOSIS CONTINUE PAIN CONTROL/ANTI-INFLAMMATORY CONSIDER SHORT TERM REHAB Catina DELUCA MD
[2018-04-04] MEDS: KETOROLAC TROMETHAMINE 30 MG/1 ML VIAL IVPUSH SCH (05:14)
[2018-04-04] MEDS: HEPARIN NA (PORCINE) 5,000 UNITS/ML 1ML VIAL SQ SCH ×3 (05:15→21:39)
[2018-04-04] MEDS: LEVOTHYROXINE NA 75 MCG TABLET (FP) PO SCH (06:36)
[2018-04-04] MEDS: oxyCODONE HCL 5 MG TABLET PO PRN ×2 (09:51→19:02)
--- NOTE | 2018-04-04 18:29 | PN ---
Physical Exam: SUBJECTIVE: Patient seen and examined. Having left hip pain, discomfort. OBJECTIVE: Lidoderm patch Ambulated with PT only 15 feet Vital Signs Period Temp Pulse Resp BP Sys/Johnson Pulse Ox Last 24 Hr 98.2 F-99.2 F 64-70 16-18 110-135/46-74 98-99 GENERAL: The patient is awake, alert, and fully oriented, in no acute distress. HEAD: Normal with no signs of trauma. EYES: PERRL, extraocular movements intact, sclera anicteric, conjunctiva clear. No ptosis. ENT: Ears normal, nares patent, oropharynx clear without exudates, moist mucous membranes. NECK: Trachea midline, full range of motion, supple. LUNGS: Breath sounds equal, clear to auscultation bilaterally, no wheezes, no crackles, no accessory muscle use. HEART: Regular rate and rhythm ABDOMEN: Soft, nontender, nondistended, normoactive bowel sounds, no guarding, no rebound, no hepatosplenomegaly, no masses. EXTREMITIES: 2+ pulses, warm, well-perfused, no edema. NEUROLOGICAL: Cranial nerves II through XII grossly intact. Normal speech, gait not observed. PSYCH: Normal mood, normal affect. SKIN: Warm, dry, normal turgor, no rashes or lesions noted Active Medications Generic Name Dose Route Start Last Admin Trade Name Freq PRN Reason Stop Dose Admin Acetaminophen 1,000 mg 04/03/18 09:13 04/03/18 10:39 Ofirmev Injection - IVPB 1,000 mg Q6H PRN Administration PAIN LEVEL 1-5 Heparin Sodium (Porcine) 5,000 unit 04/03/18 14:00 04/04/18 15:50 Heparin - SQ 5,000 unit TID ELIZABETH Administration Levothyroxine Sodium 75 mcg 04/03/18 07:00 04/04/18 06:36 Synthroid - PO 75 mcg 0700 ELIZABETH Administration Morphine Sulfate 1 mg 04/03/18 09:14 Morphine Injection - IVPUSH Q4H PRN PAIN LEVEL 6-10 Non-Formulary Medication 300 mg 04/03/18 10:00 Pentosan Polysulfate Sodium [Elmiron] PO DAILY ELIZABETH Oxycodone HCl 5 mg 04/03/18 09:13 04/04/18 09:51 Roxicodone - PO 5 mg Q4H PRN Administration PAIN LEVEL 4 - 6 ASSESSMENT/PLAN: Imaging: CTAP: No evidence of acute fx in pelvis or hips. No pelvic or hip dislocation. Chronic gluteus medius tendon injury/tear, superimposed acute tendon injury/tear , bursitis and or/calcific tendinitis. 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 ? femoroacetabular impingement Left Hip/Pelvis Xray- No acute fx, no dislocation. Mild bilateral hip OA changes Patient is a 67 year old female with a significant past medical history of hypothyroidism. She presents to the ED on 04/02/2018 with difficulty with ambulation secondary to severe left hip pain with inability to ambulate. Left hip pain, acute No fracture, gluteus tear with superimposed left hip strain and bursitiis On Toradol PRN, Oxycodone as needed Will likely need short term rehab Lidoderm patch Physical therapy Ortho following Hypothyroidism, chronic On Synthroid FEN Tolerating PO Monitor labs low sodium diet Heparin Visit type - Emergency Visit Emergency Visit: Yes ED Registration Date: 04/02/18 Care time: The patient presented to the Emergency Department on the above date and was hospitalized for further evaluation of their emergent condition. - New Patient This patient is new to me today: Yes Date on this admission: 04/04/18 - Critical Care Critical Care patient: No - Discharge Referral Referred to [facility] Med P.C.: No
[2018-04-04] MEDS ORDERED: LIDOCAINE 5% TOPICAL PATCH TP SCH (18:30)
[2018-04-04] MEDS: morphine CARPU-JECT 2 MG/1 ML DISP.SYRIN IVPUSH PRN (21:48)
[2018-04-04] MEDS ORDERED: LIDOCAINE PATCH REMOVAL MC SCH (22:00)
[2018-04-05] MEDS: LEVOTHYROXINE NA 75 MCG TABLET (FP) PO SCH (06:33)
[2018-04-05] MEDS: HEPARIN NA (PORCINE) 5,000 UNITS/ML 1ML VIAL SQ SCH ×3 (06:34→21:23)
[2018-04-05] MEDS: oxyCODONE HCL 5 MG TABLET PO PRN ×3 (07:51→23:57)
[2018-04-05] MEDS: morphine CARPU-JECT 2 MG/1 ML DISP.SYRIN IVPUSH PRN ×3 (08:05→20:15)
[2018-04-05 09:34] LABS: ALBUMIN 3.1 g/dl (3.5-5.0); ALK PHOS 44 U/L (32-92); ANION GAP 5 (8-16); BILIRUBIN,TOTAL 0.6 mg/dl (0.2-1.0); BLOOD UREA NITROGEN 6 mg/dl (7-18); CALCIUM 8.7 mg/dl (8.4-10.2); CHLORIDE 108 mmol/L (98-107); CO2 25 mmol/L (22-28); GLUCOSE,RANDOM 87 mg/dl (74-106); POTASSIUM 4.2 mmol/L (3.5-5.1); SGOT/AST 19 U/L (10-42); SGPT/ALT 10 U/L (10-40); SODIUM 138 mmol/L (136-145); TOT PROT 6.2 g/dl (6.4-8.3)
[2018-04-05 09:39] LABS: CREATININE < 0.6 mg/dl (0.6-1.3)
[2018-04-05 09:43] LABS: BASO % 0.4 % (0-2.0); EOS % 2.8 % (0-4.5); HEMATOCRIT 38.5 % (32.4-45.2); HEMOGLOBIN 12.9 GM/dl (10.7-15.3); LYMPH % 41.2 % (8-40); MCH 30.6 pg (25.7-33.7); MCHC 33.7 g/dl (32.0-36.0); MEAN CELL VOLUME 90.8 fl (80-96); MEAN PLT VOLUME 10.7 fl (7.5-11.1); MONO % 11.4 % (3.8-10.2); NEUT % 44.2 % (42.8-82.8); PLATELET COUNT 142 K/MM3 (134-434); RBC 4.23 M/mm3 (3.60-5.2); RDW 12.7 % (11.6-15.6); WHITE BLOOD COUNT 5.2 K/mm3 (4.0-10.8)
--- NOTE | 2018-04-05 10:41 | PN ---
Physical Exam: SUBJECTIVE: Patient seen and examined, c/o severe left pain,radiates to left thigh, denies B/B incontinence, cp, sob or palpitations,abdominal pain, N/V/D or urinary symptoms. OBJECTIVE: Vital Signs Period Temp Pulse Resp BP Sys/Johnson Pulse Ox Last 24 Hr 98.1 F-99.4 F 64-69 16-18 110-124/46-65 96-100 GENERAL: The patient is awake, alert, and fully oriented, in no acute distress. HEAD: Normal with no signs of trauma. EYES: PERRL, extraocular movements intact, sclera anicteric, conjunctiva clear. No ptosis. ENT: Ears normal, nares patent, oropharynx clear without exudates, moist mucous membranes. NECK: Trachea midline, full range of motion, supple. LUNGS: Breath sounds equal, clear to auscultation bilaterally, no wheezes, no crackles, no accessory muscle use. HEART: Regular rate and rhythm, S1, S2 without murmur, rub or gallop. ABDOMEN: Soft, nontender, nondistended, normoactive bowel sounds, no guarding, no rebound, no hepatosplenomegaly, no masses. EXTREMITIES: 2+ pulses, warm, well-perfused, no edema, left hip tenderness. NEUROLOGICAL: Cranial nerves II through XII grossly intact. Normal speech, gait not observed. PSYCH: Normal mood, normal affect. SKIN: Warm, dry, normal turgor, no rashes or lesions noted Laboratory Results - last 24 hr 04/05/18 04/05/18 06:45 07:00 WBC 5.2 RBC 4.23 Hgb 12.9 Hct 38.5 MCV 90.8 MCH 30.6 MCHC 33.7 RDW 12.7 Plt Count 142 MPV 10.7 Neutrophils % 44.2 Lymphocytes % 41.2 H Monocytes % 11.4 H Eosinophils % 2.8 Basophils % 0.4 Sodium 138 Potassium 4.2 Chloride 108 H Carbon Dioxide 25 Anion Gap 5 L BUN 6 L D Creatinine < 0.6 L D Creat Clearance w eGFR > 60 Random Glucose 87 Calcium 8.7 Total Bilirubin 0.6 D AST 19 ALT 10 Alkaline Phosphatase 44 Total Protein 6.2 L Albumin 3.1 L Active Medications Generic Name Dose Route Start Last Admin Trade Name Freq PRN Reason Stop Dose Admin Acetaminophen 1,000 mg 04/03/18 09:13 06/01/18 10:39 Ofirmev Injection - IVPB 1,000 mg Q6H PRN Administration PAIN LEVEL 1-5 Heparin Sodium (Porcine) 5,000 unit 04/03/18 14:00 04/05/18 06:34 Heparin - SQ 5,000 unit TID ELIZABETH Administration Levothyroxine Sodium 75 mcg 04/03/18 07:00 04/05/18 06:33 Synthroid - PO 75 mcg 0700 ELIZABETH Administration Lidocaine 1 patch 04/04/18 18:30 04/05/18 10:30 Lidoderm Patch - TP 1 patch DAILY ELIZABETH Administration Miscellaneous 1 each 04/04/18 22:00 04/04/18 22:00 Lidoderm Patch Removal MC Not Given DAILY@2200 COUNT INCLUDES THE [facility] Morphine Sulfate 1 mg 04/03/18 09:14 04/05/18 08:05 Morphine Injection - IVPUSH 1 mg Q4H PRN Administration PAIN LEVEL 6-10 Non-Formulary Medication 300 mg 04/03/18 10:00 Pentosan Polysulfate Sodium [Elmiron] PO DAILY COUNT INCLUDES THE [facility] Oxycodone HCl 5 mg 04/03/18 09:13 04/05/18 07:51 Roxicodone - PO 5 mg Q4H PRN Administration PAIN LEVEL 4 - 6 *IMAGING *CT Pelvis- No evidence of acute fx in pelvis or hips. No pelvic or hip dislocation. Chronic gluteus medius tendon injury/tear, superimposed acute tendon injury/tear, bursitis and or/calcific tendinitis. 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 ?femoroacetabular impingement * Left Hip/Pelvis Xray- No acute fx, no dislocation. Mild bilateral hip OA changes ASSESSMENT/PLAN: This is a 67 y/o woman with a PMHx of: Cystic Bladder, Chronic Back Pain, Hypothyroidism. Who presented to the ED with severe left hip pain and unable to ambulate. Imaging ruled out acute fracture. *Left hip pain, acute - Imaging -No fracture, gluteus tear with superimposed left hip strain and bursitis - ordered Tordol x1, unable to nehemiah increased dose of Oxycodone 10mg PRN - added Naprosyn -will cont on Morphine PRN,Tylenol and Lidoderm patch -Physical therapy -Ortho following, no surgical intervention recommended *Hypothyroidism, chronic On Synthroid FEN Tolerating PO Monitor labs low sodium diet VTE prophylaxis: Heparin Dispo- May need require traci Visit type - Emergency Visit Emergency Visit: Yes ED Registration Date: 04/02/18 Care time: The patient presented to the Emergency Department on the above date and was hospitalized for further evaluation of their emergent condition. - New Patient This patient is new to me today: Yes Date on this admission: 04/05/18 - Critical Care Critical Care patient: No
[2018-04-05] MEDS ORDERED: oxyCODONE HCL 5 MG TABLET PO PRN (10:53)
[2018-04-05] MEDS ORDERED: KETOROLAC TROMETHAMINE 30 MG/1 ML VIAL IVPUSH ONE (10:54)
[2018-04-05] MEDS ORDERED: MAGNESIUM HYDROX 2400MG/30ML ORAL SUSPENSION 30 ML CUP PO PRN (11:12)
[2018-04-05] MEDS ORDERED: DOCUSATE SODIUM 100 MG CAPSULE (FP) PO PRN (11:12)
[2018-04-05] MEDS: ACETAMINOPHEN 1000 MG/100 ML VIAL (NON FORMULARY) IVPB PRN (14:50)
[2018-04-05] MEDS: LIDOCAINE 5% TOPICAL PATCH TP SCH (18:37)
[2018-04-05] MEDS ORDERED: FAMOTIDINE 20 MG TABLET PO SCH (22:00)
[2018-04-05] MEDS: NAPROXEN 250 MG TABLET (FP) PO SCH (22:00)
[2018-04-06] MEDS: HEPARIN NA (PORCINE) 5,000 UNITS/ML 1ML VIAL SQ SCH ×3 (05:52→21:37)
[2018-04-06] MEDS: LIDOCAINE PATCH REMOVAL MC SCH (05:52)
[2018-04-06] MEDS: morphine CARPU-JECT 2 MG/1 ML DISP.SYRIN IVPUSH PRN (05:58)
[2018-04-06] MEDS: LEVOTHYROXINE NA 75 MCG TABLET (FP) PO SCH (06:00)
--- NOTE | 2018-04-06 08:30 | PN ---
Progress Note (short form) - Note Progress Note: Ortho Pt seen and examined still c/o pain in left hip. Was feeling better but had PT and now feels worse Selected Entries 04/06/18 06:00 Temperature 98.2 F Pulse Rate 65 Respiratory 16 Rate Blood Pressure 125/58 Laboratory Tests 04/06/18 07:30 WBC Pending Hgb Pending Hct Pending Plt Count Pending + swelling, + ttp, equal limb lengths, decr rom secondary to pain, nvi a/p MRI left hip/femur Hold PT for today NSAIDs and ICE will follow after MRI d/w Dr. Thomas
[2018-04-06] MEDS: PANTOPRAZOLE 40 MG TABLET (FP) PO SCH (09:37)
[2018-04-06] MEDS: NAPROXEN 250 MG TABLET (FP) PO SCH (09:37)
--- NOTE | 2018-04-06 09:41 | PN ---
Physical Exam: SUBJECTIVE: Patient seen and examined, resting comfortably in bed, declines physical therapy because of ongoing left hip pain. OBJECTIVE: Patient is a 67 y/o female with a past medical history of hypothyroidism, patient was admitted from the emergency department for intractable left hip pain Vital Signs Period Temp Pulse Resp BP Sys/Johnson Pulse Ox Last 24 Hr 97.6 F-98.2 F 62-65 16-16 121-136/58-66 99-99 GENERAL: The patient is awake, alert, and fully oriented, in no acute distress. HEAD: Normal with no signs of trauma. EYES: PERRL, extraocular movements intact, sclera anicteric, conjunctiva clear. No ptosis. ENT: Ears normal, nares patent, oropharynx clear without exudates, moist mucous membranes. NECK: Trachea midline, full range of motion, supple. LUNGS: Breath sounds equal, clear to auscultation bilaterally, no wheezes, no crackles, no accessory muscle use. HEART: Regular rate and rhythm, S1, S2 without murmur, rub or gallop. ABDOMEN: Soft, nontender, nondistended, normoactive bowel sounds, no guarding, no rebound, no hepatosplenomegaly, no masses. EXTREMITIES: 2+ pulses, warm, well-perfused, no edema. LEFT LOWER EXTREMITY: less than 3 second capillary refill, + 3 pedal pulse, pain upon PROM, point tenderness to the left lateral hip, no induration, no erythema noted NEUROLOGICAL: Cranial nerves II through XII grossly intact. Normal speech, gait not observed. PSYCH: Normal mood, normal affect. SKIN: Warm, dry, normal turgor, no rashes or lesions noted Laboratory Results - last 24 hr 04/05/18 06:45 WBC 5.2 RBC 4.23 Hgb 12.9 Hct 38.5 MCV 90.8 MCH 30.6 MCHC 33.7 RDW 12.7 Plt Count 142 MPV 10.7 Neutrophils % 44.2 Lymphocytes % 41.2 H Monocytes % 11.4 H Eosinophils % 2.8 Basophils % 0.4 Active Medications Generic Name Dose Route Start Last Admin Trade Name Freq PRN Reason Stop Dose Admin Acetaminophen 1,000 mg 04/03/18 09:13 04/05/18 14:50 Ofirmev Injection - IVPB 1,000 mg Q6H PRN Administration PAIN LEVEL 1-5 Docusate Sodium 100 mg 04/05/18 11:12 04/05/18 20:15 Colace - PO 100 mg Q12H PRN Administration CONSTIPATION Heparin Sodium (Porcine) 5,000 unit 04/03/18 14:00 04/06/18 05:52 Heparin - SQ 5,000 unit TID ELIZABETH Administration Levothyroxine Sodium 75 mcg 04/03/18 07:00 04/06/18 06:00 Synthroid - PO 75 mcg 0700 ELIZABETH Administration Lidocaine 1 patch 04/05/18 17:59 04/05/18 18:37 Lidoderm Patch - TP 1 patch DAILY@1830 ELIZABETH Administration Magnesium Hydroxide 30 ml 04/05/18 11:12 Milk Of Magnesia - PO PRN PRN CONSTIPATION Miscellaneous 1 each 04/05/18 17:59 04/06/18 05:52 Lidoderm Patch Removal MC 1 each DAILY@0630 ELIZABETH Administration Naproxen 250 mg 04/05/18 22:00 04/06/18 09:37 Naprosyn - PO 250 mg BID ELIZABETH Administration Non-Formulary Medication 300 mg 04/03/18 10:00 Pentosan Polysulfate Sodium [Elmiron] PO DAILY ELIZABETH Oxycodone HCl 5 mg 04/05/18 14:33 04/05/18 23:57 Roxicodone - PO 5 mg Q4H PRN Administration PAIN LEVEL 4 - 6 Pantoprazole Sodium 40 mg 04/06/18 10:00 04/06/18 09:37 Protonix - PO 40 mg DAILY ELIZABETH Administration IMAGING *CT Pelvis- No evidence of acute fx in pelvis or hips. No pelvic or hip dislocation. Chronic gluteus medius tendon injury/tear, superimposed acute tendon injury/tear, bursitis and or/calcific tendinitis. 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 ?femoroacetabular impingement * Left Hip/Pelvis Xray- No acute fx, no dislocation. Mild bilateral hip OA changes ASSESSMENT/PLAN: 1) MS intractable left hip pain - ct of pelvis reviewed, concarning for left acute tendon injury or tear with bursitis, pt reports ongoing left hip pain worsen upon movement, increase naproxyn to 500mg bid, toradol 30mg iv x 1, start protonix for gi protection - pending MRI of hip w/o contrast - orthopedist, Dr Thomas and PA Prosper consulted and following 2) endo hypotthyroidism - continue levothyroxine home dose f/e/n - regular diet - replete lytes prn ppx - physical therapy - scd/indigo - oob - protonix - heparin dispo: pt requires inpatient admission
[2018-04-06 09:50] LABS: BASO % 0.6 % (0-2.0); EOS % 3.2 % (0-4.5); HEMATOCRIT 41.7 % (32.4-45.2); HEMOGLOBIN 13.4 GM/dl (10.7-15.3); LYMPH % 46.9 % (8-40); MCH 29.3 pg (25.7-33.7); MCHC 32.2 g/dl (32.0-36.0); MEAN CELL VOLUME 90.9 fl (80-96); MEAN PLT VOLUME 9.7 fl (7.5-11.1); MONO % 12.2 % (3.8-10.2); NEUT % 37.1 % (42.8-82.8); PLATELET COUNT 152 K/MM3 (134-434); RBC 4.59 M/mm3 (3.60-5.2); RDW 12.8 % (11.6-15.6)
[2018-04-06] MEDS ORDERED: NAPROXEN 250 MG TABLET (FP) PO SCH (09:58)
[2018-04-06 10:25] LABS: ANION GAP 6 (8-16); BLOOD UREA NITROGEN 8 mg/dl (7-18); CHLORIDE 105 mmol/L (98-107); CO2 25 mmol/L (22-28); CREATININE < 0.8 mg/dl (0.6-1.3); GLUCOSE,RANDOM 99 mg/dl (74-106); POTASSIUM 4.1 mmol/L (3.5-5.1); SODIUM 136 mmol/L (136-145); URIC ACID 3.5 mg/dl (2.6-7.2)
[2018-04-06 10:31] LABS: MAGNESIUM 1.7 mg/dL (1.8-2.4); PHOSPHOROUS 4.5 mg/dl (2.5-4.6)
[2018-04-06] MEDS ORDERED: KETOROLAC TROMETHAMINE 30 MG/1 ML VIAL IVPUSH ONE (10:45)
[2018-04-06] MEDS: LIDOCAINE 5% TOPICAL PATCH TP SCH (19:37)
[2018-04-06] MEDS ORDERED: PT OWN MED DRAWER 7, Y5N ONE (21:18)
[2018-04-06] MEDS: NAPROXEN 500 MG TABLET (FP) PO SCH (21:36)
[2018-04-06] MEDS: oxyCODONE HCL 5 MG TABLET PO PRN (21:37)
[2018-04-06 23:28] VITALS: TEMP 97.8
[2018-04-07 06:44] VITALS: BP 127/58; PULSE 63
[2018-04-07] MEDS ORDERED: PT OWN MED DRAWER 7, Y5N ONE (09:09)
[2018-04-07] MEDS: LEVOTHYROXINE NA 75 MCG TABLET (FP) PO SCH (09:13)
[2018-04-07] MEDS: NAPROXEN 500 MG TABLET (FP) PO SCH (09:13)
[2018-04-07] MEDS: PANTOPRAZOLE 40 MG TABLET (FP) PO SCH (09:14)
[2018-04-07] MEDS: HEPARIN NA (PORCINE) 5,000 UNITS/ML 1ML VIAL SQ SCH ×2 (09:14→15:42)
[2018-04-07] MEDS: LIDOCAINE PATCH REMOVAL MC SCH (09:14)
--- NOTE | 2018-04-07 11:58 | DS ---
Physical Exam: SUBJECTIVE: Patient seen and examined, patient reports left hip pain upon bearing weight on the extremity, OBJECTIVE:This is a 67 y/o woman with a PMHx of: Cystic Bladder, Chronic Back Pain, Hypothyroidism. Who presents to the ED with severe left hip pain and unable to ambulate since today. Patient reports while sitting down she turned and felt a snap in her left hip which was "excruciating", leaving her unable to ambulate due to the pain. Patient also reports numbness to her left foot. The patient denies recent fall or trauma. Patient denies fever, chills, cough, SOB, CP, palpitations, AP, N/V/D, dysuria ER course was notable for: (1) CT Pelvis- No evidence of acute fx in pelvis or hips. No pelvic or hip dislocation. Chronic gluteus medius tendon injury/tear, superimposed acute tendon injury/tear, bursitis and or/calcific tendinitis. 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 ?femoroacetabular impingement (2) Left Hip/Pelvis Xray- No acute fx, no dislocation. Mild bilateral hip OA changes Vital Signs Period Temp Pulse Resp BP Sys/Johnson Pulse Ox Last 24 Hr 97.8 F-98.0 F 63-71 18-19 119-134/58-59 98-100 PHYSICAL EXAM GENERAL: The patient is awake, alert, and fully oriented, in no acute distress. HEAD: Normal with no signs of trauma. EYES: PERRL, extraocular movements intact, sclera anicteric, conjunctiva clear. ENT: Ears normal, nares patent, oropharynx clear without exudates, moist mucous membranes. NECK: Trachea midline, full range of motion, supple. LUNGS: Breath sounds equal, clear to auscultation bilaterally, no wheezes, no crackles, no accessory muscle use. HEART: Regular rate and rhythm, S1, S2 without murmur, rub or gallop. ABDOMEN: Soft, nontender, nondistended, normoactive bowel sounds, no guarding, no rebound, no hepatosplenomegaly, no masses. EXTREMITIES: 2+ pulses, warm, well-perfused, no edema. NEUROLOGICAL: Cranial nerves II through XII grossly intact. Normal speech, gait not observed. PSYCH: Normal mood, normal affect. SKIN: Warm, dry, normal turgor, no rashes or lesions noted. LABS Laboratory Results - last 24 hr 04/07/18 05:38 POC Glucometer 170 IMAGING *CT Pelvis- No evidence of acute fx in pelvis or hips. No pelvic or hip dislocation. Chronic gluteus medius tendon injury/tear, superimposed acute tendon injury/tear, bursitis and or/calcific tendinitis. 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 ?femoroacetabular impingement * Left Hip/Pelvis Xray- No acute fx, no dislocation. Mild bilateral hip OA changes *mri of lower extremity-moderate to severe left calcific greater trochanteric bursitis deposition disease. tendinosis of the distal gluteus minimus and medius tendons, soft tissue edema is extending distally deep in the iliotibial band of the proximal to mid thigh osteoarthritic changes to both hips as per radiologist Dr. hardy HOSPITAL COURSE: 1) intractable left hip pain - MRI of pelvis reviewed in depth with patient, patient treated with naproxyn with relief and protonix for gi protection. - physical therapy evaluation completed restorative services recommended - orthopedist, Dr Thomas and ESTHER Cheng consulted and followed 2) hypotthyroidism - continue levothyroxine home dose PLAN - discharge to short term rehab - strict follow up with orthopedist within 3 weeks Date of Admission:04/05/18 Date of Discharge: 04/07/18 Minutes to complete discharge: 45 Discharge Summary Reason For Visit: NON-TRAUMATIC RUPTURE OF TENDON Current Active Problems Left hip pain (Acute) Tendon rupture, nontraumatic (Acute) Condition: Good - Instructions Referrals: Israel Heath MD [Primary Care Provider] - - Home Medications Comprehensive Discharge Medication List: Ambulatory Orders Levothyroxine [Synthroid -] 75 mcg PO DAILY 02/16/17 Pentosan Polysulfate Sodium [Elmiron] 300 mg PO DAILY 09/29/17 Oxycodone HCl/Acetaminophen [Percocet 10-325 mg Tablet] 1 each PO ASDIR - Discharge Referral Referred to [facility] No
--- NOTE | 2018-04-07 13:33 | PN ---
Progress Note (short form) - Note Progress Note: Ortho Pt seen and examined by Dr. Thomas- improved decr pain, incr rom, less pain with ambulation nvi MRI + GT bursitis, tendinosis, and DJD a/p PT wbat NSAIDs d/c today f/u in 10-14 days in the office d/w Dr. Thomas
[2018-04-07] MEDS: oxyCODONE HCL 5 MG TABLET PO PRN (16:03)
== END 2018-04-07 16:35 | disposition home health service (06) | DRG 558 ==
LOC: FER 10:04 → SUPCPDRO 10:04 → FM/S 14:12 → UNDOADMOB 14:12 → OBSVTOIN 04-05 15:19 → FM/S 04-05 15:19 → INTOOBSV 04-05 15:19
PROVIDERS: ADMIT Internal Medicine; ATTEND Nurse Practitioner Family
DX: M70.62 Trochanteric bursitis, left hip (principal); M25.552 Pain in left hip; E03.9 Hypothyroidism, unspecified; K21.9 Gastro-esophageal reflux disease without esophagitis; M16.11 Unilateral primary osteoarthritis, right hip; M16.12 Unilateral primary osteoarthritis, left hip; M66.852 Spontaneous rupture of other tendons, left thigh
CPT/HCPCS: 36415; 72192-TC; 73523-TC-FY; 73718-LT; 80048; 80053; 82962; 83735; 84100; 84550; 85025; 85610; 86850; 86900; 86901; 93005; 97116-GP; 97161-GP; 99282-25; G0378; J0131; J1644

== ENCOUNTER 2019-03-26 04:54 | Day surgery (SDC) | payer OTHER, MEDICARE ==
[2019-03-26] MEDS ORDERED: MICROFIBRILLAR COLLAGEN 1 GM EACH ONE (09:08)
[2019-03-26] MEDS ORDERED: LIDOCAINE 1%-EPI 1:100,000 30 ML MDV IJ ONE (09:08)
[2019-03-26 09:46] VITALS: BMI 22.3
[2019-03-26] MEDS ORDERED: fentaNYL CITRATE 250 MCG/5 ML VIAL ONE (10:39)
[2019-03-26] MEDS ORDERED: PROPOFOL 20 ML ONE (10:39)
[2019-03-26] MEDS ORDERED: SUCCINYLCHOLINE CHLORIDE 200 MG/10 ML VIAL ONE (10:39)
[2019-03-26] MEDS ORDERED: MIDAZOLAM HCL 2 MG/2 ML SINGLE DOSE VIAL ONE (10:39)
[2019-03-26] MEDS ORDERED: ePHEDrine SULFATE 50 MG/1 ML AMPULE ONE (11:09)
[2019-03-26] MEDS ORDERED: ceFAZolin SODIUM 1 GM VIAL IVPB ONE (11:10)
[2019-03-26] MEDS ORDERED: BUPIVACAINE HCL/PF 0.5% (5MG/ML) 10 ML VIAL ONE (11:15)
[2019-03-26] MEDS ORDERED: DEXAMETHASONE SOD PHOSPHATE 4 MG/1 ML VIAL ONE (11:18)
[2019-03-26] MEDS ORDERED: ceFAZolin SODIUM 1 GM VIAL ONE (11:18)
[2019-03-26] MEDS ORDERED: LIDOCAINE 1%/EPI 1:100000 (20 ML MULTI DOSE VIAL) IJ ONE (11:40)
[2019-03-26] MEDS ORDERED: BUPIVACAINE HCL/PF 0.5% (5MG/ML) 10 ML VIAL IJ ONE (11:40)
[2019-03-26] MEDS ORDERED: ONDANSETRON 4 MG/2 ML VIAL IVPUSH PRN (12:44)
[2019-03-26] MEDS ORDERED: oxyCODONE HCL 5 MG TABLET PO PRN ×2 (12:44→22:33)
[2019-03-26] MEDS ORDERED: LACTATED RINGERS SOLUTION 1,000 ML IV SCH (12:45)
--- NOTE | 2019-03-26 13:22 | OP ---
Operative Note - Note: Operative Date: 03/26/19 Pre-Operative Diagnosis: left thyroid nodule Operation: left hemithyroidectomy Post-Operative Diagnosis: Same as Pre-op Surgeon: Jose Luis Romo Money Market Dealer: Jackeline Lau Anesthesiologist/ELEMENTARY ASSISTANT TEACHER: Fletcher Aceves Anesthesia: General Specimens Removed: left thyroid lobe Estimated Blood Loss (mls): 10 Fluid Volume Replaced (mls): 1,000 Operative Report Dictated: Yes
--- NOTE | 2019-03-26 13:23 | SURG ---
Surgery Duct Layer Note Duct Layer: Jackeline Lau PA-C Date of Service: 03/26/19 Diagnosis: left thyroid nodule Procedure: left hemithyroidectomy I was present for the entirety of the operative procedure. For further detail, please refer to operative report. Visit type - Case Type Case Type: Scheduled - Emergency Emergency Visit: No - New patient This patient is new to me today: Yes Date on this admission: 03/26/19
--- NOTE | 2019-03-26 14:49 | OP ---
DATE OF OPERATION: 03/26/2019 SURGICAL ATTENDING: Forest Fonseca MD HOME CHILD CARE PROVIDER: Jackeline Lau PREOPERATIVE DIAGNOSIS: Left thyroid cancer. POSTOPERATIVE DIAGNOSIS: Left thyroid cancer. ANESTHESIA: General endotracheal. PROCEDURE: Left hemithyroidectomy. DESCRIPTION OF PROCEDURE: The patient was taken into the operating room and placed in a supine position. Endotracheally intubated. Neck ultrasound was performed confirming the left-sided thyroid nodule as well as a very small left superior pole nodule. No other nodules were seen in the thyroid gland, and no lymphadenopathy was seen. The neck was then prepped and draped in the usual sterile fashion. Local anesthesia was administered, and a horizontal incision excising the prior cervical scar was then performed. This was carried down through subcutaneous tissues and platysma. Subplatysmal flaps were raised superiorly and inferiorly, and flap hooks were placed for exposure. The median raphae was incised, and the left-sided strap muscles were elevated off the thyroid gland. The recurrent laryngeal nerve, superior laryngeal nerve, and parathyroid glands were identified and preserved. The superior, posterior, and inferior attachments of the left thyroid lobe were transected. The isthmus was transected, and in this way the left thyroid lobe was removed. Note that nerve monitoring was used throughout, and the recurrent laryngeal nerve was found to be intact with a good signal at the conclusion of the case. Hemostasis was achieved with bipolar electrocautery and Avitene. The wound was then closed in 3 layers. Dermabond was placed. The patient was then awakened, extubated, and taken to recovery in stable condition. Dr. Fonseca, the attending surgeon, was present throughout the entire procedure. FOREST FONSECA M.D. [id number]
[2019-03-26] MEDS ORDERED: oxyCODONE HCL 5 MG TABLET ONE ×2 (15:06→17:01)
[2019-03-27] MEDS: ACETAMINOPHEN 325 MG TABLET (FP) PO PRN ×2 (01:01→08:22)
[2019-03-27 08:49] VITALS: BP 110/56; PULSE 72; TEMP 97.6
--- NOTE | 2019-04-09 11:24 | PATH ---
Surgical Pathology Report Patient Name: JAIME HERNANDEZ [facility]. Rec. #: [id number] /Age/Gender: 1950 (Age: 68) / F Account: [id number] Location: AMBULATORY SURG Taken: 03/26/2019 Received: 03/26/2019 Reported: 04/09/2019 Physicians: Jose Luis Romo M.D. Specimen(s) Received A: CERVICAL SCAR B: LEFT THYROID LOBE Clinical History Thyroid nodule Final Diagnosis A. SURGICAL SCAR, EXCISION: SEGMENT OF SKIN WITH SCAR. B. LEFT THYROID LOBE: ENCAPSULATED PAPILLARY THYROID CARCINOMA, FOLLICULAR VARIANT WITH ONE FOCUS OF VASCULAR INVASION AND ONE FOCUS OF CAPSULAR INVASION (1.5CM IN GREATEST SIZE PER OUTSIDE REPORT). Comments The slides show an encapsulated predominantly follicular lesion. In several areas, the lesional cells have enlarged, irregular, overlapping nuclei with groves as well as variable degrees of nuclear clearing. This nuclear atypia, especially the clearing is best seen on slide B5. In slide B3, there is a thrombus composed of lesional cells hanging in the lumen of an intra-capsular vessel and covered by endothelial cells. This is my opinion is a focus of vascular invasion. In slide B5, there is a nodule outside the capsule having the same cytoarchitectural features as the main lesion. This is a focus of capsular invasion. Of note, the lesion has been entirely submitted as per outside report. Specimen B "left thyroid lobe" sent for consultation to Dr. Tho Martinez from [facility], [place], [place] ([phone]), the diagnosis above reflects his opinion. The evaluation of the margins to follow as an addendum report. This case was discussed with Dr. Romo on April 08, 2019. Electronically Signed Fuentes Swenson M.D. Gross Description A. Received in formalin, labeled "cervical scar" is a portion of skin measuring 4.7 x 0.7 x 0.4 cm. The skin is not oriented. The skin surface is normal colored with focal irregular surface. Benefits Analyst sections submitted in one cassette. B. Received in formalin, labeled "left thyroid lobe", is a portion of soft tissue with attached hard nodule which is surrounded by thin layer soft tissue. The specimen surface is inked blue. The soft tissue measures 2 x 1.5 x 1.1 cm, the calcified nodule measures 1.5 x 1 x 1 cm. This soft tissue is serially sectioned and entirely submitted in cassettes 1 and 2. The nodule is serially sectioned, decalcified, and entirely submitted in cassette 3 to 5. __ STACI/03/29/2019 driss/03/29/2019
== END 2019-03-27 11:13 | disposition home or self-care (01) ==
LOC: JASUSAT 04:54 → JASU-SURG 04:54 → J8W 20:15 → JASUSAT 03-27 11:13
PROVIDERS: ATTEND Surgery
PROC: 0GTG0ZZ Resection of Left Thyroid Gland Lobe, Open Approach (ICD-10-PCS; principal; 2019-03-26 10:30)
DX: C73 Malignant neoplasm of thyroid gland (principal)
CPT/HCPCS: 88304-TC; 88305-TC; 94760

== ENCOUNTER → 2019-12-16 | Day surgery (SDC) | payer OTHER, MEDICARE ==
--- NOTE | 2019-12-17 18:39 | PATH ---
Surgical Pathology Report Patient Name: JAIME HERNANDEZ [facility]. Rec. #: [id number] /Age/Gender: 1950 (Age: 69) / F Account: [id number] Location: [facility] Taken: 12/16/2019 Received: 12/16/2019 Reported: 12/17/2019 Physicians: Ilya Hitchcock M.D. Specimen(s) Received A: LEFT BREAST SPECIMEN WITH CALCIFICATIONS B: LEFT BREAST SPECIMEN WITHOUT CALCIFICATIONS Clinical History Nonpalpable lesion Mammographic findings: Microcalcification, suspicious Final Diagnosis A. LEFT BREAST SPECIMEN WITH CALCIFICATIONS, STEREOTACTIC BIOPSY: FIBROADENOMA WITH ASSOCIATED CALCIFICATIONS. B. LEFT BREAST SPECIMEN WITHOUT CALCIFICATIONS, STEREOTACTIC BIOPSY: BENIGN BREAST TISSUE WITH STROMAL FIBROSIS. Electronically Signed Fuentes Swenson M.D. Gross Description A. Received in formalin, labeled with the patient's name and indicated on the requisition to be "left breast with calcifications," is a 2.3 x 1.4 x 0.3 cm aggregate of multiple lewis-yellow, irregular to cylindrical portions of fibroadipose tissue. The formalin is filtered and the specimen is entirely submitted in one cassette. B. Received in formalin labeled "left breast without calcification," is a 1.7 x 1.2 x 0.3 cm aggregate of multiple lewis-yellow, irregular to cylindrical portions of fibroadipose tissue. The formalin is filtered and the specimen is entirely submitted in one cassette. Time to formalin fixation: 5 minutes Total formalin fixation time: Approximately 6 hours. 12/16/2019 [facility]12/16/2019
== END | disposition home or self-care (01) ==
LOC: FMAMMOTONE 12:07
PROVIDERS: ATTEND Specialist
PROC: 0HBU3ZX Excision of Left Breast, Percutaneous Approach, Diagnostic (ICD-10-PCS; principal; 2019-12-16)
DX: D24.2 Benign neoplasm of left breast (principal); N60.32 Fibrosclerosis of left breast; N64.89 Other specified disorders of breast; R92.1 Mammographic calcification found on diagnostic imaging of breast
CPT/HCPCS: 19081; 76098-TC-FY; 87899; 88305-TC; A4648

== ENCOUNTER 2021-08-17 14:43 | Emergency (ER) | payer OTHER, MEDICARE ==
[2021-08-17 15:15] VITALS: TEMP 98; BMI 21.7
[2021-08-17] MEDS ORDERED: ACETAMINOPHEN 500 MG TABLET (FP) PO ONE (17:13)
[2021-08-17] MEDS ORDERED: ACETAMINOPHEN 325 MG TABLET (FP) ONE (17:26)
[2021-08-17 19:56] VITALS: BP 122/76; PULSE 62
== END 2021-08-17 19:55 | disposition home or self-care (01) ==
LOC: JER 14:43
DX: S09.90XA Unspecified injury of head, initial encounter (principal); W19.XXXA Unspecified fall, initial encounter
CPT/HCPCS: 70450-TC; 72125-TC; 73562-TC-RT-FY; 99284-25

== ENCOUNTER 2022-07-04 13:35 | Emergency (ER) | payer OTHER, MEDICARE ==
[2022-07-04 14:23] VITALS: RESP 19; TEMP 98.5; BMI 22.3
[2022-07-04] MEDS ORDERED: DEXTROSE 50%-WATER - 25 GM/50 ML VIAL IVPUSH ONE (14:36)
[2022-07-04] MEDS ORDERED: DEXTROSE 50%-WATER 25 GM/50 ML DISP.SYRIN ONE (14:40)
[2022-07-04 15:17] LABS: BASO % 0.7 % (0-2.0); EOS % 0.6 % (0-4.5); HEMATOCRIT 42.2 % (32.4-45.2); HEMOGLOBIN 13.8 GM/dL (10.7-15.3); LYMPH % 43.3 % (8-40); MCH 29.9 pg (25.7-33.7); MCHC 32.8 g/dl (32.0-36.0); MEAN CELL VOLUME 91.1 fl (80-96); MEAN PLT VOLUME 9.8 fl (7.5-11.1); MONO % 8.9 % (3.8-10.2); NEUT % 46.5 % (42.8-82.8); PLATELET COUNT 147 10^3/uL (134-434); RBC 4.63 M/mm3 (3.60-5.2); RDW 14.9 % (11.6-15.6); WHITE BLOOD COUNT 4.7 K/mm3 (4.0-10.0)
[2022-07-04] MEDS ORDERED: LORazepam 2 MG/ML SDV VIAL IVPUSH ONE (15:20)
[2022-07-04 15:24] LABS: INR 1.17 (0.83-1.09); PROTHROMBIN TIME (PATIENT) 13.5 SEC (9.7-13.0)
[2022-07-04 15:27] LABS: ACTIVATED PTT 31.6 SECONDS (25.2-36.5)
[2022-07-04 15:46] LABS: CALCIUM 9.2 mg/dL (8.5-10.1)
[2022-07-04 15:47] LABS: BLOOD UREA NITROGEN 9.2 mg/dL (7-18); CREATININE 0.8 mg/dL (0.55-1.3)
[2022-07-04 15:48] LABS: TOT PROT 7.5 g/dl (6.4-8.2)
[2022-07-04 16:02] LABS: BILIRUBIN,TOTAL 1.2 mg/dL (0.2-1)
[2022-07-04 16:04] LABS: EPI CELLS 9 /uL (0-25.1); HYALINE CASTS 0 /uL (0-3.1); PH,URINE 6.5 (5.0-8.0); URINE APPEARANCE CLEAR; URINE BACTERIA 6 /uL (0-1359); URINE BILIRUBIN NEGATIVE (NEGATIVE); URINE COLOR YELLOW; URINE GLUCOSE (UA) NEGATIVE (NEGATIVE); URINE KETONE NEGATIVE (NEGATIVE); URINE LEUK ESTERASE NEGATIVE (NEGATIVE); URINE NITRITE NEGATIVE (NEGATIVE); URINE PROTEIN NEGATIVE (NEGATIVE); URINE RBC 7 /uL (0-23.9); URINE UROBILINOGEN 0.2 mg/dL (0.2-1.0); URINE WBC 5 /uL (0-25.8)
[2022-07-04] MEDS ORDERED: ACETAMINOPHEN 1000 MG/100 ML BAG IVPB ONE (17:59)
[2022-07-04] MEDS ORDERED: ACETAMINOPHEN INJECTION 100 ML IVPB ONE (18:15)
[2022-07-04] MEDS ORDERED: PIPERACILLIN/TAZOB 3.375 GM 3.375 GM in DEXTROSE 5%-WATER - 50 ML IVPB ONE (19:33)
[2022-07-04] MEDS ORDERED: morphine CARPU-JECT 2 MG/1 ML DISP.SYRIN IVPUSH ONE (21:11)
[2022-07-04] MEDS ORDERED: ONDANSETRON 4 MG/2 ML VIAL ONE (21:35)
[2022-07-04] MEDS ORDERED: ONDANSETRON 4 MG/2 ML VIAL IVPUSH ONE (21:35)
[2022-07-04 22:22] VITALS: BP 137/64; PULSE 45
[2022-07-05] MEDS ORDERED: PIPERACILLIN/TAZOB 3.375 GM 3.375 GM/50 ML BAG IVPB ONE
== END 2022-07-05 01:41 | disposition short-term general hospital (02) ==
LOC: JER 13:35
PROC: 3E03329 Introduction of Other Anti-infective into Peripheral Vein, Percutaneous Approach (ICD-10-PCS; principal; 2022-07-04)
PROC: 3E033NZ Introduction of Analgesics, Hypnotics, Sedatives into Peripheral Vein, Percutaneous Approach (ICD-10-PCS; 2022-07-04)
PROC: 3E033GC Introduction of Other Therapeutic Substance into Peripheral Vein, Percutaneous Approach (ICD-10-PCS; 2022-07-04)
PROC: 3E033GC Introduction of Other Therapeutic Substance into Peripheral Vein, Percutaneous Approach (ICD-10-PCS; 2022-07-04)
PROC: 3E033GC Introduction of Other Therapeutic Substance into Peripheral Vein, Percutaneous Approach (ICD-10-PCS; 2022-07-04)
DX: I44.2 Atrioventricular block, complete (principal); K52.9 Noninfective gastroenteritis and colitis, unspecified; R55 Syncope and collapse
CPT/HCPCS: 36415; 70450-TC; 71045-TC-FY; 72125-TC; 74174-TC; 80053; 81003; 82962; 83605; 83690; 84443; 84484; 85025; 85610; 85730; 86850; 86900; 86901; 87086; 93005; 93010; 99285-25; C9803-CS; U0003; U0005

== ENCOUNTER 2023-08-16 12:54 | Observation (INO) | payer OTHER, MEDICARE ==
[2023-08-16 14:28] LABS: BASO % 1.3 % (0-2.0); EOS % 1.9 % (0-4.5); HEMATOCRIT 46.7 % (32.4-45.2); HEMOGLOBIN 15.4 GM/dL (10.7-15.3); LYMPH % 58.6 % (8-40); MCH 29.8 pg (25.7-33.7); MCHC 32.9 g/dl (32.0-36.0); MEAN CELL VOLUME 90.5 fl (80-96); MEAN PLT VOLUME 9.5 fl (7.5-11.1); NEUT % 30.2 % (42.8-82.8); PLATELET COUNT 142 10^3/uL (134-434); RBC 5.16 M/mm3 (3.60-5.2); RDW 14.2 % (11.6-15.6); WHITE BLOOD COUNT 3.9 K/mm3 (4.0-10.0)
[2023-08-16 14:37] LABS: INR 1.14 (0.83-1.09); PROTHROMBIN TIME (PATIENT) 13.2 SEC (9.7-13.0)
[2023-08-16 14:40] LABS: ACTIVATED PTT 32.4 SECONDS (25.2-36.5)
[2023-08-16 14:48] LABS: POTASSIUM 4.4 mmol/L (3.5-5.1)
[2023-08-16 14:50] LABS: CALCIUM 9.1 mg/dL (8.5-10.1)
[2023-08-16 14:51] LABS: ALBUMIN 3.9 g/dl (3.4-5.0); BLOOD UREA NITROGEN 10.2 mg/dL (7-18)
[2023-08-16 14:54] LABS: CREATININE 0.8 mg/dL (0.55-1.3)
[2023-08-16 14:55] LABS: BILIRUBIN,TOTAL 0.8 mg/dL (0.2-1)
[2023-08-16 14:56] LABS: TOT PROT 7.6 g/dl (6.4-8.2)
[2023-08-16] MEDS ORDERED: ACETAMINOPHEN 500 MG TABLET (FP) PO ONE (15:19)
[2023-08-16] MEDS ORDERED: ACETAMINOPHEN 325 MG TABLET (FP) ONE (15:37)
[2023-08-16] MEDS ORDERED: METOCLOPRAMIDE HCL INJECTION 10 MG/2 ML VIAL IVPUSH ONE (19:32)
[2023-08-16] MEDS ORDERED: METOCLOPRAMIDE HCL INJECTION 10 MG/2 ML VIAL ONE (20:00)
[2023-08-16] MEDS ORDERED: DIPHTH,PERTUSS(ACELL),TET 0.5 ML DISP.SYRIN IM ONE (20:03)
[2023-08-16] MEDS ORDERED: DOCUSATE SODIUM 100 MG CAPSULE (FP) PO PRN (20:16)
[2023-08-16] MEDS ORDERED: ACETAMINOPHEN 1000 MG/100 ML BAG IVPB PRN (21:30)
[2023-08-17 04:53] VITALS: BMI 23.5
[2023-08-17] MEDS: LEVOTHYROXINE NA 50 MCG TABLET (FP) PO SCH (06:09)
[2023-08-17] MEDS ORDERED: MECLIZINE HCL 12.5 MG TABLET PO PRN (06:39)
[2023-08-17] MEDS ORDERED: ACYCLOVIR 400 MG TABLET PO SCH (10:00)
[2023-08-17 10:21] LABS: BASO % 0.8 % (0-2.0); HEMATOCRIT 47.5 % (32.4-45.2); LYMPH % 44.8 % (8-40); MCH 29.2 pg (25.7-33.7); MCHC 31.7 g/dl (32.0-36.0); MEAN CELL VOLUME 92.3 fl (80-96); MEAN PLT VOLUME 9.5 fl (7.5-11.1); MONO % 7.4 % (3.8-10.2); PLATELET COUNT 136 10^3/uL (134-434); RBC 5.15 M/mm3 (3.60-5.2); RDW 13.9 % (11.6-15.6); WHITE BLOOD COUNT 3.9 K/mm3 (4.0-10.0)
[2023-08-17 10:38] LABS: POTASSIUM 4.4 mmol/L (3.5-5.1)
[2023-08-17 10:41] LABS: BLOOD UREA NITROGEN 11.3 mg/dL (7-18); CALCIUM 8.8 mg/dL (8.5-10.1)
[2023-08-17 10:47] LABS: CREATININE 0.8 mg/dL (0.55-1.3)
[2023-08-17] MEDS ORDERED: ACETAMINOPHEN 325 MG TABLET (FP) PO PRN (21:30)
[2023-08-17] MEDS ORDERED: ROSUVASTATIN CA 5 MG TABLET PO SCH (22:00)
[2023-08-17 22:29] VITALS: RESP 18
[2023-08-18] MEDS: LEVOTHYROXINE NA 50 MCG TABLET (FP) PO SCH (06:11)
[2023-08-18 14:53] VITALS: BP 107/75; PULSE 63; TEMP 98.3
== END 2023-08-18 15:42 | disposition home or self-care (01) ==
LOC: JER 12:54 → JERBED 18:48 → J8W 08-17 04:16
PROVIDERS: ADMIT Internal Medicine; ATTEND Family Medicine
PROC: 3E033NZ Introduction of Analgesics, Hypnotics, Sedatives into Peripheral Vein, Percutaneous Approach (ICD-10-PCS; principal; 2023-08-16)
PROC: 3E033GC Introduction of Other Therapeutic Substance into Peripheral Vein, Percutaneous Approach (ICD-10-PCS; 2023-08-16)
DX: R42 Dizziness and giddiness (principal); R55 Syncope and collapse; W18.39XA Other fall on same level, initial encounter; Y93.89 Activity, other specified; Y92.410 Unspecified street and highway as the place of occurrence of the external cause; K21.9 Gastro-esophageal reflux disease without esophagitis; N30.10 Interstitial cystitis (chronic) without hematuria; Z90.79 Acquired absence of other genital organ(s); Z90.49 Acquired absence of other specified parts of digestive tract; M25.561 Pain in right knee; M25.562 Pain in left knee; M62.81 Muscle weakness (generalized); Z91.040 Latex allergy status; Z88.8 Allergy status to other drugs, medicaments and biological substances
CPT/HCPCS: 0241U-QW; 36415; 70450-TC; 71045-TC-FY; 72125-TC; 72170-TC-FY; 73030-TC-RT-FY; 73521-TC-FY; 73564-TC-LT-FY; 73564-TC-RT-FY; 80048; 80053; 83605; 83735; 84443; 84484; 85025; 85610; 85730; 86850; 86900; 86901; 93005; 93010; 96365; 96374; 97116-GP; 99285-25; G0378

== ENCOUNTER 2023-10-01 11:33 | Inpatient (IN) | payer OTHER, MEDICARE ==
[2023-10-01 11:54] VITALS: BMI 22.4
[2023-10-01] MEDS ORDERED: SODIUM CHLORIDE 0.9% 500 ML INFUS.BAG IV ONE (13:23)
[2023-10-01] MEDS ORDERED: ACETAMINOPHEN 1000 MG/100 ML BAG IVPB ONE (13:23)
[2023-10-01] MEDS ORDERED: ACETAMINOPHEN INJECTION 100 ML IVPB ONE (13:49)
[2023-10-01 14:09] LABS: BASO % 0.6 % (0-2.0); EOS % 1.3 % (0-4.5); HEMOGLOBIN 14.5 GM/dL (10.7-15.3); LYMPH % 42.7 % (8-40); MCH 29.2 pg (25.7-33.7); MCHC 31.6 g/dl (32.0-36.0); MEAN CELL VOLUME 92.5 fl (80-96); MEAN PLT VOLUME 9.9 fl (7.5-11.1); MONO % 10.2 % (3.8-10.2); NEUT % 45.2 % (42.8-82.8); PLATELET COUNT 147 10^3/uL (134-434); RBC 4.98 M/mm3 (3.60-5.2); RDW 14.9 % (11.6-15.6); WHITE BLOOD COUNT 4.6 K/mm3 (4.0-10.0)
[2023-10-01 14:32] LABS: POTASSIUM 4.6 mmol/L (3.5-5.1)
[2023-10-01 14:34] LABS: CALCIUM 8.6 mg/dL (8.5-10.1)
[2023-10-01 14:35] LABS: ALBUMIN 3.5 g/dl (3.4-5.0); BLOOD UREA NITROGEN 9.5 mg/dL (7-18)
[2023-10-01 14:38] LABS: CREATININE 0.8 mg/dL (0.55-1.3)
[2023-10-01 14:39] LABS: BILIRUBIN,TOTAL 0.9 mg/dL (0.2-1); TOT PROT 7.1 g/dl (6.4-8.2)
[2023-10-01] MEDS: ACETAMINOPHEN 325 MG TABLET (FP) PO PRN (19:05)
[2023-10-01] MEDS ORDERED: KETOROLAC TROMETHAMINE 15 MG/ML VIAL IM ONE (23:12)
[2023-10-02] MEDS: LEVOTHYROXINE NA 75 MCG TABLET (FP) PO SCH (06:32)
[2023-10-02 07:41] LABS: HEMATOCRIT 42.4 % (32.4-45.2); HEMOGLOBIN 13.3 GM/dL (10.7-15.3); MCH 29.1 pg (25.7-33.7); MCHC 31.3 g/dl (32.0-36.0); PLATELET COUNT 126 10^3/uL (134-434); RBC 4.56 M/mm3 (3.60-5.2); RDW 14.6 % (11.6-15.6); WHITE BLOOD COUNT 3.8 K/mm3 (4.0-10.0)
[2023-10-02 08:00] LABS: BLOOD UREA NITROGEN 13.2 mg/dL (7-18); CALCIUM 8.1 mg/dL (8.5-10.1)
[2023-10-02 08:03] LABS: CREATININE 0.9 mg/dL (0.55-1.3)
[2023-10-02 08:05] LABS: BILIRUBIN,TOTAL 0.8 mg/dL (0.2-1); TOT PROT 6.2 g/dl (6.4-8.2)
[2023-10-02] MEDS: ACETAMINOPHEN 325 MG TABLET (FP) PO PRN ×2 (11:16→17:16)
[2023-10-03] MEDS: ACETAMINOPHEN 325 MG TABLET (FP) PO PRN (06:12)
[2023-10-03] MEDS: LEVOTHYROXINE NA 75 MCG TABLET (FP) PO SCH (06:12)
[2023-10-03] MEDS: traMADol HCL 50 MG TABLET PO PRN ×2 (12:37→21:13)
[2023-10-04] MEDS: traMADol HCL 50 MG TABLET PO PRN ×3 (05:55→22:20)
[2023-10-04] MEDS: LEVOTHYROXINE NA 88 MCG TABLET (FP) PO SCH (06:11)
[2023-10-04 07:41] VITALS: RESP 18
[2023-10-04] MEDS: ACETAMINOPHEN 325 MG TABLET (FP) PO PRN (10:45)
[2023-10-04] MEDS: MECLIZINE HCL 12.5 MG TABLET PO PRN ×2 (13:55→22:20)
[2023-10-05] MEDS: traMADol HCL 50 MG TABLET PO PRN ×2 (06:02→13:45)
[2023-10-05] MEDS: MECLIZINE HCL 12.5 MG TABLET PO PRN ×2 (06:02→13:45)
[2023-10-05] MEDS: LEVOTHYROXINE NA 88 MCG TABLET (FP) PO SCH (06:03)
[2023-10-05] MEDS ORDERED: ONDANSETRON 4 MG/2 ML VIAL IVPUSH PRN (09:30)
[2023-10-05 14:56] VITALS: BP 110/67; PULSE 62; TEMP 98.2
== END 2023-10-05 16:08 | disposition home or self-care (01) | DRG 312 ==
LOC: JER 11:33 → JERBED 13:37 → OBSVTOIN 16:47 → J4W 18:27
PROVIDERS: ADMIT Family Medicine; ATTEND Family Medicine
DX: R55 Syncope and collapse (principal); R00.1 Bradycardia, unspecified; E78.5 Hyperlipidemia, unspecified; E03.9 Hypothyroidism, unspecified; K21.9 Gastro-esophageal reflux disease without esophagitis; G43.909 Migraine, unspecified, not intractable, without status migrainosus; R29.6 Repeated falls; M54.2 Cervicalgia; I45.5 Other specified heart block; M85.88 Other specified disorders of bone density and structure, other site; M79.601 Pain in right arm; M79.602 Pain in left arm; Z95.0 Presence of cardiac pacemaker; W18.30XA Fall on same level, unspecified, initial encounter; Y92.098 Other place in other non-institutional residence as the place of occurrence of the external cause
CPT/HCPCS: 36415; 70450-TC; 70486-TC; 72125-TC; 80053; 83735; 84439; 84443; 84484; 85025; 85027; 85651; 93005; 93010; 97116-GP; 97161-GP; 99285-25; G0378

== ENCOUNTER 2024-03-17 04:03 | Day surgery (SDC) | payer OTHER, MEDICARE ==
[2024-03-16 09:13] VITALS: BMI 22.8
[~2024-03-17 04:03] MED LIST: ACETAMINOPHEN 325 MG TABLET (FP) PO PRN
[2024-03-17 06:26] VITALS: RESP 20
[2024-03-17] MEDS ORDERED: TROPICAMIDE 1% OPHTH SOLN 15 ML BOTTLE ONE (06:30)
[2024-03-17] MEDS ORDERED: KETOROLAC TROMETHAMINE 0.5% EYE DROP 1 DROP DROPS ONE (06:30)
[2024-03-17] MEDS ORDERED: PHENYLEPHRINE 2.5% OPTHALMIC DROP 2ML BOTTLE ONE (06:30)
[2024-03-17] MEDS ORDERED: OFLOXACIN 0.3% OPHTHALMIC SOLUTION 5 ML BOTTLE ONE (06:30)
[2024-03-17] MEDS ORDERED: CYCLOPENTOLATE HCL 1% OPHTH SOLN 2 ML BOTTLE ONE (06:30)
[2024-03-17] MEDS ORDERED: LORATADINE 10 MG TABLET PO ONE (07:00)
[2024-03-17] MEDS: CYCLOPENTOLATE HCL 1% OPHTH SOLN 2 ML BOTTLE OP SCH (07:05)
[2024-03-17] MEDS: OFLOXACIN 0.3% OPHTHALMIC SOLUTION 5 ML BOTTLE OP SCH (07:05)
[2024-03-17] MEDS: LORATADINE 10 MG TABLET PO ONE (07:05)
[2024-03-17] MEDS: PHENYLEPHRINE 2.5% OPHTH SOLN 15 ML BOTTLE OP SCH (07:05)
[2024-03-17] MEDS: TROPICAMIDE 1% OPHTH SOLN 15 ML BOTTLE OP SCH (07:05)
[2024-03-17] MEDS: KETOROLAC TROMETHAMINE 0.5% EYE DROP 1 DROP DROPS OP SCH (07:05)
[2024-03-17] MEDS ORDERED: EPINEPHrine/PF 1 MG/1 ML (1:1,000) AMPULE ONE (07:19)
[2024-03-17] MEDS ORDERED: VANCOMYCIN 500 MG VIAL (RESTRICTED TO ID ONLY) ONE (07:21)
[2024-03-17] MEDS ORDERED: LIDOCAINE HCL/PF 1% SDV 5ML VIAL ONE (07:21)
[2024-03-17] MEDS ORDERED: LIDOCAINE HCL/PF 2% SDV 5ML VIAL ONE (07:22)
[2024-03-17] MEDS ORDERED: BUPIVACAINE HCL/PF 0.75% 10 ML VIAL ONE (07:23)
[2024-03-17] MEDS ORDERED: POVIDONE-IODINE 5% OPHTHALMIC PREP 30 ML SOLUTION ONE (07:24)
[2024-03-17] MEDS ORDERED: BSS (NA/CA/MG/K) BALANCED SALT SOLUTION OPHTH SOLN 15 ML BOTTLE ONE (07:24)
[2024-03-17] MEDS ORDERED: MIDAZOLAM HCL 2 MG/2 ML SINGLE DOSE VIAL ONE (09:07)
[2024-03-17] MEDS ORDERED: PROPOFOL 20 ML ONE (09:09)
[2024-03-17] MEDS: BUPIVACAINE HCL/PF 0.75% 10 ML VIAL RB ONE (09:16)
[2024-03-17] MEDS: LIDOCAINE HCL/PF 2% SDV 5ML VIAL INF ONE (09:16)
[2024-03-17] MEDS: POVIDONE-IODINE 5% OPHTHALMIC PREP 30 ML SOLUTION OD ONE (09:17)
[2024-03-17] MEDS: LIDOCAINE HCL 1% PRESERVATIVE FREE - 30ML VIAL IO ONE ×2 (09:26)
[2024-03-17] MEDS: BSS (NA/CA/MG/K) BALANCED SALT SOLUTION OPHTH SOLN 15 ML BOTTLE IO ONE ×2 (09:27)
[2024-03-17] MEDS: CHONDROITIN SU A/HYALUR SOD 1 KIT IO ONE ×2 (09:28)
[2024-03-17] MEDS: EPINEPHrine/PF 1 MG/1 ML (1:1,000) AMPULE IO ONE ×2 (09:31)
[2024-03-17 10:03] VITALS: PULSE 60
[2024-03-17 11:19] VITALS: BP 150/83; TEMP 97.5
== END 2024-03-17 12:10 | disposition home or self-care (01) ==
LOC: JASU-SURG 04:03
PROVIDERS: ATTEND Ophthalmology
PROC: 08RJ3JZ Replacement of Right Lens with Synthetic Substitute, Percutaneous Approach (ICD-10-PCS; principal; 2024-03-17 09:00)
DX: H26.9 Unspecified cataract (principal)
CPT/HCPCS: V2632

== ENCOUNTER 2024-03-31 04:15 | Day surgery (SDC) | payer OTHER, MEDICARE ==
[2024-03-26 08:57] VITALS: BMI 22.8
[2024-03-31] MEDS ORDERED: CYCLOPENTOLATE HCL 1% OPHTH SOLN 2 ML BOTTLE ONE (07:17)
[2024-03-31] MEDS ORDERED: KETOROLAC TROMETHAMINE 0.5% EYE DROP 1 DROP DROPS ONE (07:17)
[2024-03-31] MEDS ORDERED: TROPICAMIDE 1% OPHTH SOLN 15 ML BOTTLE ONE (07:17)
[2024-03-31] MEDS ORDERED: PHENYLEPHRINE 2.5% OPTHALMIC DROP 2ML BOTTLE ONE (07:17)
[2024-03-31] MEDS ORDERED: OFLOXACIN 0.3% OPHTHALMIC SOLUTION 5 ML BOTTLE ONE (07:18)
[2024-03-31] MEDS: CYCLOPENTOLATE HCL 1% OPHTH SOLN 2 ML BOTTLE OP SCH (07:33)
[2024-03-31] MEDS: OFLOXACIN 0.3% OPHTHALMIC SOLUTION 5 ML BOTTLE OP SCH (07:34)
[2024-03-31] MEDS: PHENYLEPHRINE 2.5% OPHTH SOLN 15 ML BOTTLE OP SCH (07:34)
[2024-03-31] MEDS: KETOROLAC TROMETHAMINE 0.5% EYE DROP 1 DROP DROPS OP SCH (07:34)
[2024-03-31] MEDS: TROPICAMIDE 1% OPHTH SOLN 15 ML BOTTLE OP SCH (07:34)
[2024-03-31] MEDS ORDERED: LIDOCAINE HCL/PF 1% SDV 5ML VIAL ONE (08:22)
[2024-03-31] MEDS ORDERED: LIDOCAINE HCL/PF 2% SDV 5ML VIAL ONE (08:22)
[2024-03-31] MEDS ORDERED: EPINEPHrine/PF 1 MG/1 ML (1:1,000) AMPULE ONE (08:22)
[2024-03-31] MEDS ORDERED: BUPIVACAINE HCL/PF 0.75% 10 ML VIAL ONE (08:23)
[2024-03-31] MEDS ORDERED: TETRACAINE 0.5% OPHTH SOLN 2 ML BOTTLE ONE (08:23)
[2024-03-31] MEDS ORDERED: POVIDONE-IODINE 5% OPHTHALMIC PREP 30 ML SOLUTION ONE (08:23)
[2024-03-31] MEDS ORDERED: PROPOFOL 20 ML ONE (08:59)
[2024-03-31] MEDS ORDERED: MIDAZOLAM HCL 2 MG/2 ML SINGLE DOSE VIAL ONE (09:00)
[2024-03-31] MEDS: BUPIVACAINE HCL/PF 0.75% 10 ML VIAL NR ONE ×2 (09:08)
[2024-03-31] MEDS: LIDOCAINE HCL/PF 2% SDV 5ML VIAL INF ONE ×2 (09:08)
[2024-03-31] MEDS: POVIDONE-IODINE 5% OPHTHALMIC PREP 30 ML SOLUTION OS ONE ×2 (09:10)
[2024-03-31] MEDS: BSS (NA/CA/MG/K) BALANCED SALT SOLUTION OPHTH SOLN 15 ML BOTTLE IO ONE (09:17)
[2024-03-31] MEDS: LIDOCAINE HCL 1% PRESERVATIVE FREE - 30ML VIAL IO ONE (09:18)
[2024-03-31] MEDS: CHONDROITIN SU A/HYALUR SOD 1 KIT IO ONE (09:19)
[2024-03-31] MEDS: EPINEPHrine/PF 1 MG/1 ML (1:1,000) AMPULE IO ONE (09:21)
[2024-03-31 14:07] VITALS: RESP 20; TEMP 97.5
[2024-03-31 14:14] VITALS: BP 125/78; PULSE 20
== END 2024-03-31 12:42 | disposition home or self-care (01) ==
LOC: JASU-SURG 04:15
PROVIDERS: ATTEND Ophthalmology
PROC: 08RK3JZ Replacement of Left Lens with Synthetic Substitute, Percutaneous Approach (ICD-10-PCS; principal; 2024-03-31 09:00)
DX: H26.9 Unspecified cataract (principal)
CPT/HCPCS: V2632